=== PATIENT | male | born 1970 ===

== ENCOUNTER 2024-09-24 16:36 | Inpatient (IN) | payer OTHER, SELFPAY ==
[2024-09-24] VITALS (35 sets, daily range): BP systolic 110–175; BP diastolic 71–102; PULSE 2–82; BMI 38.2
[2024-09-24] MEDS: NSS 322 ML IV (07:13)
[2024-09-24] MEDS: LOW STRENGTH ASPIRIN 324 MG PO (07:15)
[2024-09-24 08:46] LABS: ACT-LR - POC 199 Seconds (116-155)
[2024-09-24 09:44] LABS: Hematocrit 38.9 % (39.0-52.0); Hemoglobin 11.7 g/dL (13.0-18.0); Mean Corp Hgb Conc. 30.1 g/dL (33.0-37.0); Mean Corpuscular Hgb 29.3 pg (27.0-31.0); Mean Corpuscular Volume 97.5 fL (80.0-94.0); Red Blood Cell Count 3.99 10^6/uL (4.70-6.10); Red Cell Dist. Width 15.4 % (11.5-14.5); White Blood Cell Count 7.4 10^3/uL (4.8-10.8)
[2024-09-24 10:38] LABS: Mean Platelet Volume 10.6 fL (7.4-10.4); Platelet Count 128 10^3/uL (130-400)
--- NOTE | 2024-09-24 11:02 | ITS.CL.CATH ---
Addendum entered and electronically signed by Kalen Ramos MD 09/24/24 11:23:
Contrast Load: 70ccs Visopaque.
Original Note:
Embedded Firmware Engineer - Catheterization
Cardiac Catheterization
Procedure Report:
LEFT HEART CATHETERIZATION
Date of Procedure: September 24, 2024
Procedures performed:
1: Coronary angiography
2: Right heart catheterization
3: Conscious sedation
Primary Care Physician: Unknown
Primary Ruffler: Self
INDICATION: 54-year-old male with known cardiomyopathy, severe peripheral vascular disease, acutely short of breath and edematous. Left and right heart catheterization done to evaluate hemodynamics.
ACCESS: The patient was prepped and draped in usual sterile fashion. A 6 Turkmen sheath was placed in the right radial] artery using the Seldinger over the wire technique. 5 Turkmen sheath was placed in the right brachial vein.
HEMODYNAMIC FINDINGS (mmHg):
Using a 5 Turkmen Arrow balloontipped catheter, right heart catheterization was performed.
Pulmonary capillary wedge pressure is 44 mmHg.
PA pressure 76/41 with a mean of 54 mmHg
Aortic saturation is 87.2% on 2 L nasal cannula
PA saturation 60.1% on 2 L nasal cannula.
RV pressure 73/21 mmHg
RA pressure is 23
mmHg
Using a JR4 catheter, the aortic valve was crossed into left ventricle. Pressures were recorded and pullback was performed. In order to conserve IV contrast use, left ventriculography was not performed.
LV(s/d,EDP): 152/33 with an LVEDP of 51
Ao(s/d,m): 155/100 with a mean of 124
Coronary Angiography: Of note, the patient's anatomy was very difficult, and access to the vessels was difficult.
Dominance: [Right dominant.]
Left Main: Diffuse atherosclerotic disease present. 20 to 30% distal left main coronary artery stenosis
Left Anterior Descending: [Large vessel. Reaches the apex. 3 diagonals present with D3 being the largest vessel.20 to 30% mid LAD stenosis. Diffuse atherosclerotic disease present throughout the LAD.
Left Circumflex: Large vessel. Diffuse atherosclerotic disease present. 1 large OM branch present. OM1 has 50 to 60% ostial and 40 to 50% mid segment stenosis.
Right Coronary: [Large vessel. Dominant. Normal size PDA. Minor luminal irregularities are present. No discrete stenoses.]
Fluoroscopy Time (min): 9.1 minutes
Radiation Dose (mGy): One 494.35
DAP (Gy.cm2): 80.2356
Closure device: None. A TR band was applied for hemostasis at the right wrist.
Complications: None.
ASSESSMENT:
1: Diffuse, nonobstructive coronary artery disease
2: Severely elevated left sided pressures.
3: Severe pulmonary hypertension
4: Severely elevated pulmonary capillary wedge pressure
CONCLUSIONS and RECOMMENDATIONS:
1: Given the patient's state of acutely decompensated congestive heart failure, would recommend admission for aggressive diuresis.
2: Continue maximal medical therapy for coronary artery disease.
3: Patient may need evaluation for implantable cardioverter defibrillator after 3 months of maximal medical therapy.
I was present with the patient for the duration of the moderate sedation and supervised staff who monitored the patient for the entire procedure. Details of sedation are entered by the nurse administering the sedation and details of the patient's
monitoring status are entered by a sign monitor role staff member into the [facility] laboratory electronic record system. Please see the nursing flow sheets for documentation of the name of the independent trained observer, and intra-service start and
end times.
I administered moderate sedation throughout this 35 minute procedure. An independent trained observer administered medications at my direction, and monitored, along with the monitor role staff member, the patient's level of consciousness and
physiological status throughout.
[2024-09-24 11:03] LABS: Blood Urea Nitrogen 50 mg/dl (9-20); Calcium 6.7 mg/dl (8.4-10.2); Carbon Dioxide 14 mmol/L (22-30); Chloride 116 mmol/L (98-107); Estimated Creatinine Clearance 33 ml/min; Glucose 99 mg/dl (70-99); Potassium 6.4 mmol/L (3.5-5.1); Sodium 142 mmol/L (135-145); eGFR 24.93
--- NOTE | 2024-09-24 11:25 | PTCARENOTE ---
Critical results from BMP- K 6.4, CO2 14 and calcium 6.[address] Garcia
[2024-09-24] MEDS: LOKELMA 10 GRAM PO (11:53)
[2024-09-24] MEDS: DEXTROSE 50% SYRINGE 25 GRAMS IV (12:05)
[2024-09-24] MEDS: NOVOLIN R 0.1 UNITS IV (12:05)
--- NOTE | 2024-09-24 12:53 | HPS.HSE ---
Family Physician
-
Family Physician: LUI PASCAL,
Chief Complaint
-
CHF
History of Present Illness
Mr. Ismael Uriostegui is a 54yo M pmh CHF, AAA, HLD admitted for a CHF exacerbation. Pt got a heart catheterization this morning and was found to be in an acute CHF exacerbation. +dyspnea earlier today, +30lb weight gain, +B/L LE edema. -CP, -HALLMAN,
-fever, - chills, -cough, - palpitations, -N/V/D/C, -abdominal pain.
Medical History
Past Medical History
Past Medical History: Reports CHF and Hypercholesterolemia
Past Surgical History: Reports Orthopedic
Social History
Tobacco: Smoker (40 pack-years)
Alcohol: Former (quit 1 yr ago)
Drug: None
Family History
Family History: Not pertinent
Allergies / Home Medications
Allergies reflects when Allergies were last updated in agreement24 [email or web address].
Home Medications with original date entered in agreement24 [email or web address]
Allergy/Medication List:
Allergies
Allergy/AdvReac Type Severity Reaction Status Date / Time
No Known Allergies Allergy Verified 09/24/24 06:40
Home Medications
atorvastatin 40 mg tablet 40 mg PO DAILY 09/23/24
carvedilol 12.5 mg tablet 12.5 mg PO BID 09/23/24
clopidogrel 75 mg tablet 75 mg PO DAILY 09/23/24
empagliflozin 10 mg tablet 10 mg PO DAILY 09/23/24
furosemide 40 mg tablet 40 mg PO DAILY 09/23/24
sacubitril 24 mg-valsartan 26 mg tablet 1 tab PO BID 09/23/24
Review of Systems
-
History Source: Patient
A 12 point ROS was completed and negative except as noted: Yes
Constitutional: Reports Weight Gain
Respiratory: Reports Trouble Breathing
Musculoskeletal: Reports Edema
Physical Exam
Vital Signs
Vital Signs
Temp Pulse Resp BP Pulse Ox
97.8 F 75 21 142/89 94
09/24/24 07:28 09/24/24 12:45 09/24/24 12:45 09/24/24 12:26 09/24/24 12:45
Physical Exam
General: Well Developed, Well Nourished and Obese
HEENT: NormoCephalic, Anicteric and Atraumatic
Respiratory: Wheezes
Cardiac: S1/S2 and Regular Rhythm
GI: Soft, Non Tender, Non Distended and Normal Bowel Sounds
Musculoskeletal: No Clubbing, No Cyanosis, Edema, Left Lower Extremity and Edema, Right Lower Extremity
Skin: Warm and Dry
Neuro: AO x 3
Psych: Calm
Laboratory Results
-
09/24/24 09:28
09/24/24 09:28
Impression/Plan
-
IMPRESSION:
Acute decompensated CHF
LOURDES vs CKD stage IV
Hyperkalemia
Hypocalcemia
Normocytic anemia
Metabolic acidosis
Infrarenal 8cm AAA
PAD
Tobacco use disorder
Alcohol use disorder
HLD
PLAN:
CHF, Unspecified type
- cont home carvedilol
- diurese w lasix
- hold SGLT2i, entresto
- echo, CXR, probnp
- I's&O's, daily weights
- K>4, Mg>2
LOURDES vs underlying CKD stage IV
- no baseline labs available
- Cr 2.9
- hold SGLT-2i, entresto
- monitor cmp
- nephro following
Hyperkalemia
- insulin w D50
- cont lokelma
- kayexalate per nephro
Hypocalcemia
- check Mg, albumin
- replete
Nonanion gap Metabolic acidosis
- ABG
Normocytic anemia
- monitor cbc
Tobacco use disorder
- nicotine patch
- councilled on smoking cessation
Alcohol use disorder
- reports last drink 1 yr ago
- thiamine, folate
- LFTs
Infrarenal AAA, measuring 8cm
- vascular surgery consulted
HLD
- cont statin, plavix
PAD
- cont statin/plavix
Obesity due to excess calories
- concern for JAD/OHS
- BiPAP nocturnal
- pulm consulted
- abg
Diet: cholesterol lowering
DVT ppx: heparin
Code status: FULL CODE
--- NOTE | 2024-09-24 13:43 | W.PN.UPDATE ---
Update Note
Progress Note Update
I personally performed a history and physical exam of the patient and discussed management with the resident. I reviewed the resident's note and agree with the documented findings and plan of care HPI/CC.
54-year-old male who is presenting as a direct admission after cardiac cath (RHC/LHC) due to multiple medical problems including elevated PCWP (acute decompensated CHF) as well as acute kidney injury and 8 cm aortic aneurysm. Currently denies chest
pain or shortness of breath.
Gen: NAD, AAOx3.
Eyes: EOMI, PERRLA, no scleral icterus.
Neck: supple.
CV: RRR, +S1/S2, no m/r/g.
Resp: CTAB, no rales, wheezes, or rhonchi.
Abd: +BS, soft, NT, ND
Skin: No rashes. 3+ B/L LE edema
Neuro: CN 2-12 intact, non-focal.
Psych: Normal mood and affect.
Lab Results
09/24/24 09/24/24
08:41 09:28
WBC 7.4
RBC 3.99 L
Hgb 11.7 L
Hct 38.9 L
MCV 97.5 H
MCH 29.3
MCHC 30.1 L
RDW 15.4 H
Plt Count 128 L
MPV 10.6 H
Sodium 142
Potassium 6.4 H*
Chloride 116 H
Carbon Dioxide 14 L*
BUN 50 H
Creatinine 2.9 H
Estimated Creat Clear 33
eGFR 24.93
Glucose 99
Calcium 6.7 L*
POC ACT Low Range 199 H
Acute decompensated CHF:
-check proBNP
-check echo (urgently, I personally called echo department). Reportedly EF 20%.
-cont IV lasix (high dose), daily wts, I/Os
-concerned with hyperkalemia (see below), non-AG met acidosis, CKD4 (baseline Cr 2.6), and need for diuresis.
-current HR 47, has been on Coreg 12.5mg PO BID, may need to lower dose
-hold Entresto/Jardiance with CKD4
Severe hyperkalemia:
-s/p D50W and insulin
-cont Lokelma
-with need for diuresis for acute decompensated heart failure it is possible the patient will need urgent HD. Discussed with Dr. Payne over the phone. Patient is going to receive Kayexalate. Will also receive bicarb and high dose lasix.
Tobacco abuse disorder:
-Patient reports he smoked a pack a day for over 40 years
-Nicotine patch
-Counseled on smoking cessation
Alcohol abuse disorder:
-states he quit ~ 1 year ago
-check LFTs
-start thiamine/folate
Infrarenal abdominal aortic aneurysm of 8 cm:
-Consult vascular surgery
HLD:
-cont statin
PAD:
-cont plavix/statin
Hypocalcemia:
-Check albumin to calculate corrected calcium
-suspect this is 'real.' Will give 2g calcium gluconate while awaiting albumin.
Obesity due to excess calories:
-Patient was dozing off during cardiology's interview
-Concern for undiagnosed OHS/JAD
-Check ABG
-Continuous end-tidal CO2 monitoring
-Consult pulmonary, discussed with Dr. Benitez, will do PRN BIPAP 14/6 with 2-4L O2
-Check two-view chest x-ray
FULL/Heparin
Total time spent on today's encounter was 78 minutes which included time spent in counseling the patient/family regarding diagnosis and treatment plan as listed above, goals of care, and symptom management. Case was discussed with nursing staff,
specialists, and care coordinators/case management. All labs and imaging personally reviewed by me. Remainder the time spent in detailed review of previous records, lab data, imaging, and other medical provider documentation.
--- NOTE | 2024-09-24 13:47 | W.CON.NEPH ---
Consultation
-
Date/Time Consultation Requested: 09/24/2024 10:00 AM
Date/Time Consultation Performed: 09/24/2024 12:30 PM
Requesting Provider: Dr. Garcia
Performing Provider: Dr. Payne
Reason for Consultation: Acute kidney injury/hyperkalemia/metabolic acidosis
Medical History
-
Chief Complaint: Acute kidney injury
History of Present Illness:
The patient is a 54-year-old male with a past medical history unknown to us. Apparently he has a history of an underlying cardiomyopathy with a EF of 20% maintained on beta-mark and Entresto and 40 mg daily of Lasix. He has a history of
peripheral vascular disease and is maintained on Plavix. He apparently has a infrarenal AAA of 8 cm diameter. He is maintained on statin therapy in the setting of dyslipidemia. The patient has had increasing shortness of breath and edema. He
underwent both left and right heart cath today and was noted to have diffuse nonobstructive coronary artery disease with associated severe pulmonary hypertension and elevated pulmonary capillary wedge pressure in excess of 40. Nephrology was
consulted after the procedure for his decompensated congestive heart failure creatinine of 2.9 and associated hyperkalemia with potassium of 6.4 and serum bicarbonate level 14. Calcium level is also depressed.
Past Medical History
AAA 8 cm diameter
Peripheral vascular disease
Cardiomyopathy with EF of 20 to 30%
Congestive heart failure
Chronic kidney disease stage IV baseline creatinine 2.65 as of June 2024
Dyslipidemia
Social History
Tobacco: Smoker
Family History
no ckd
Allergies / Home Medications
Allergy/AdvReac Type Severity Reaction Status Date / Time
No Known Allergies Allergy Verified 09/24/24 06:40
�Medication �Instructions �Recorded �Confirmed �Type
atorvastatin 40 mg tablet 40 mg PO DAILY 09/23/24 09/24/24 History
carvedilol 12.5 mg tablet 12.5 mg PO BID 09/23/24 09/24/24 History
clopidogrel 75 mg tablet 75 mg PO DAILY 09/23/24 09/24/24 History
empagliflozin 10 mg tablet 10 mg PO DAILY 09/23/24 09/24/24 History
furosemide 40 mg tablet 40 mg PO DAILY 09/23/24 09/24/24 History
sacubitril 24 mg-valsartan 26 mg 1 tab PO BID 09/23/24 09/24/24 History
tablet
Review of Systems
-
History Source: Patient
All other systems: Negative unless noted
Constitutional: Fatigue
Respiratory: Trouble Breathing
Cardiac: No Symptoms
Abdomen/GI: No Symptoms
: No Symptoms
Musculoskeletal: Edema
Skin: No Symptoms
Neurological: No Symptoms
Endocrine: No Symptoms
Hematologic/Lymphatic: No Symptoms
Physical Exam
Vital Signs
Vital Signs
Temp Pulse Resp BP Pulse Ox
97.8 F 47 16 142/89 96
09/24/24 07:28 09/24/24 13:00 09/24/24 13:00 09/24/24 12:26 09/24/24 13:07
Lab Results
09/24/24 09:28
09/24/24 09:28
WBC 7.4 10^3/uL (4.8-10.8) 09/24/24 09:28
RBC 3.99 10^6/uL (4.70-6.10) L 09/24/24 09:28
Hgb 11.7 g/dL (13.0-18.0) L 09/24/24 09:28
Hct 38.9 % (39.0-52.0) L 09/24/24 09:28
Plt Count 128 10^3/uL (130-400) L 09/24/24 09:28
Sodium 142 mmol/L (135-145) 09/24/24 09:28
Potassium 6.4 mmol/L (3.5-5.1) H* 09/24/24 09:28
Chloride 116 mmol/L (98-107) H 09/24/24 09:
Carbon Dioxide 14 mmol/L (22-30) L* 09/24/24:
BUN 50 mg/dl (9-20) H 09/24/24:
Creatinine 2.9 mg/dL (0.7-1.3) H 09/24/24:
eGFR 24.93 09/24/24:
Glucose 99 mg/dl (70-99) 09/24/24:
Calcium 6.7 mg/dl (8.4-10.2) L* 09/24/24:
Physical Exam
General: AOx3, moderate respiratory distress
HEENT: PERRL, EOMI, Anicteric, Conjunctivae Clear, Ear/Nose Intact, Hearing Normal, Oropharynx Clear/Moist, Dentition Intact, Facial Symmetry, Neck Supple, Neck: Trachea Midline, No JVD and No Thyromegaly, no Bruits
Respiratory: Bilateral scattered rales and wheezes with decreased breath sounds towards the bases
Cardiac: S1/S2 and Regular Rate/Rhythm
Breast: Deferred by me
Abdomen: Soft, obese ,nontender, Nondistended, Normal Bowel Sounds and No Hepatosplenomegaly
Rectal: Deferred by Provider
Genito-urinary: No Costovertebral Tenderness
Extremities: No Clubbing, No Cyanosis and 2+ pitting pretibial edema
Skin: No Rash or open lesions
Neuro: Nonfocal/Grossly Intact, CN II-XII (Intact) and Strength (Musculoskeletal exam 5 out of 5 both upper and lower extremities)
Hematologic/Lymphatic: No Cervical Lymphadenopathy, No Submandibular Lymphadenopathy and No Supraclavicular Lymphadenopathy
Psych: Mood/afflect pleasant, Insight/judgement good and Appropriate
Vascular: plus 1 radial pulses, poorly palpable pedal pulse
Data Reviewed
-
Radiology: Report Reviewed by me (Cardiac cath report reviewed)
Labs: Labs Reviewed by me (BMP CBC)
Old Records: Requested (To obtain from [facility])
Assessment/Plan
-
Impression:
LOURDES
CKD 4 (baseline 2.65 07/11)
Hyperkalemia
Decompensated congestive heart failure
Cardiomyopathy with EF of 20 to 30%
Hypocalcemia
[place] metabolic acidosis
PVD/AAA 8cm
Plan:
LOURDES in setting of decompensated congestive heart failure
-Baseline labs not available
-Patient needs aggressive diuresis with 80 mg IV lasix twice daily to be initiated
-Check postvoid bladder scans to evaluate for obstructive component
-Initiate sodium bicarbonate tablets for metabolic acidosis
-Treatment of hyperkalemia (was provided with insulin and D50) , will provide Kayexalate dosage x 1
-Check urinalysis
-Hold Entresto and Empagliflozin in setting of hyperkalemia and acute renal failure
-Significant concern for contrast nephropathy given IV dye load in excess of 100 cc, cardiomyopathy,and GFR less than 30
-Will closely monitor for dialysis requirement
-Accurate I's and O's and daily weights to be obtained
-check pth re: hypocalcemia
--- NOTE | 2024-09-24 14:21 | CON.CAR ---
Addendum entered and electronically signed by Anupam Hogan MD 09/24/24 16:07:
patient seen and examined
agree with MAUREEN Pulido's note and assessment
agree with MAUREEN Pulido's plan
exam:
he has increased work of breathing
placing him on bipap
appears dusky
jvp 8
cor regular
lungs diminished bilaterally with elevated respirations and mild to moderate respiratory distress
abd soft nt nd
no ext edema
aao x 3
PCP: Dr. Jammie Tinoco
Cardiology: Dr. Ramos
Impression:
Admitted to after elective cath for multiple medical problems 09/24/24
CKD 4
Cre 2.65 06/26/24, Cre 2.76 and eGFR 26 09/14/24yperkalemia
potassium 5.6 09/14/24Nonobstructive CAD by cath 09/24/24
Acute HFrEF
PCWP 44 on RHC 09/24/24NICM EF EF 25 to 30% by echo 06/13/24
Mild MR
Moderate aortic regurgitation
Sinus bradycardia
Suspected JAD
PAD
Occluded right external iliac, multifocal mild to moderate narrowing of bilateral common iliac arteries, occluded left SFA and significant atherosclerotic disease in the left popliteal artery and LLE arteries by CTA 05/2624
Mild to moderate stenosis of bilateral renal arteriesLarge partially thrombosed fusiform aneurysm in the distal descending thoracic aorta and suprarenal abdominal aorta measuring up to 8.5 cm and 15 cm, infrarenal AAA measuring 4.5 x 4.4 cm and
approximately 7 cm in length
Echo 06/13/2024: EF 27.2% by Koehler's method, mild to moderate increased LV cavity with severe eccentric LVH, grade 2 diastolic dysfunction, normal RV size with mildly decreased RV systolic function, small pericardial effusion, mild MR, moderate
aortic regurgitation
Echo 10/04/2024: Report pending
Plan:
-Patient had nonobstructive CAD by cardiac cath
-Repeat echo ordered for this admission and report is pending
-agree with transfer to IMU for BIPAP support given his respiratory and metabolic acidosis
-Outpatient dose of Coreg 12.5 mg twice daily will be reduced to 6.25 mg twice daily due to bradycardia on telemetry monitoring.
-Patient with known CKD stage 4 and baseline creatinine of 2.6-2.7. Patient received approximately 150 mL of IV contrast with cardiac catheterization. Nephrology consulted. Would recommend holding outpatient dose of Entresto for now.
-Patient was taking Jardiance 10 mg daily prior to admission and will hold dose for now with expected worsening of renal function following cardiac cath.
-Patient with acute HFrEF and PCWP was 44 by [facility] 09/24/2024. For now we will attempt to diurese with Lasix 80 mg IV twice daily. Patient was taking Lasix 40 mg daily prior to admission.
-Appreciate nephrology input
-Vascular surgery saw the patient as well and he has diffuse PAD as outlined above. No intervention is planned during this admission and he will follow-up with vascular surgery as an outpatient.
Original Note:
Consultation
Consultation Request
Date/Time Consultation Requested: 09/24/2024
Date/Time Consultation Performed: 09/24/2024
Requesting Provider: Dr. Garcia
Performing Provider:
Reason for Consultation: CM, nonobstructive CAD
Medical History
-
History of Present Illness:
Patient was seen by his primary page designer on 08/30/2024 after missing several appointments and they reviewed his testing at length and decided to pursue LHC at today and patient is now being admitted postprocedure for acute HF and multiple
medical problems with consultation to cardiology. Patient has a history of CM and EF was 25 to 30% by echo 06/13/2024, but it was unclear if this was ischemic or nonischemic. The patient's primary page designer noted calcifications visible on
coronary arteries and the patient has a history of severe PAD and so was recommended that he pursue R/LHC at to help facilitate vascular surgery consult as well. Patient has a history of what is described as CKD 3 and his primary cardiology
notes but a baseline creatinine of 2.65. And then on pre-cath labs from 09/06/2024 the creatinine was up to 2.76 with a GFR of 26 which is most consistent with CKD 4. Patient had cardiac cath today and was found to have nonobstructive CAD. He is
being seen by vascular surgery team postop for his diffuse PAD. Also on RHC the PCWP was 44. Nephrology is seeing the patient now as well for hyperkalemia and of note the potassium is elevated 5.6 on pre-cath labs from 09/06/2024.
PMH:
CKD 4
Cre 2.65 06/26/24, Cre 2.76 and eGFR 26 09/14/24
Hyperkalemia
potassium 5.6 09/14/24
Nonobstructive CAD by cath 09/24/24
Chronic HFrEF
NICM EF EF 25 to 30% by echo 06/13/24
Mild MR
Moderate aortic regurgitation
PAD
Occluded right external iliac, multifocal mild to moderate narrowing of bilateral common iliac arteries, occluded left SFA and significant atherosclerotic disease in the left popliteal artery and LLE arteries by CTA 05/2624
Mild to moderate stenosis of bilateral renal arteries
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
Past Medical History
Past Medical History: Other (in HPI)
Past Surgical History: Appendectomy, Orthopedic (right femur julissa) and Tonsilectomy
Social History
Tobacco: Smoker
Alcohol: None
Drug: None
Personal: Partner
Family History
Family History: Diabetes
Allergies / Home Medications
Allergy/AdvReac Type Severity Reaction Status Date / Time
No Known Allergies Allergy Verified 09/24/24 06:40
�Medication �Instructions �Recorded �Confirmed �Type
atorvastatin 40 mg tablet 40 mg PO DAILY 09/23/24 09/24/24 History
carvedilol 12.5 mg tablet 12.5 mg PO BID 09/23/24 09/24/24 History
clopidogrel 75 mg tablet 75 mg PO DAILY 09/23/24 09/24/24 History
empagliflozin 10 mg tablet 10 mg PO DAILY 09/23/24 09/24/24 History
furosemide 40 mg tablet 40 mg PO DAILY 09/23/24 09/24/24 History
sacubitril 24 mg-valsartan 26 mg 1 tab PO BID 09/23/24 09/24/24 History
tablet
Review of Systems
-
History Source: Patient
All other systems: Negative unless noted
Physical Exam
Vital Signs
Temp Pulse Resp BP Pulse Ox
97.8 F 47 16 142/89 96
09/24/24 07:28 09/24/24 13:00 09/24/24 13:00 09/24/24 12:26 09/24/24 13:07
GEN: NAD. AAOx3
HEENT: EOMI, MMM
LUNGS: 2 L NC. No audible wheeze
CV: SR. Reg, S1/S2, no murmur
ABD: soft, BS+, NT, ND
EXT: No clubbing, cyanosis, lesions or edema B/L
NEURO: Gross non-focal
SKIN: No rash
Lab Results
09/24/24 09:28
Labs 09/14/2024: [facility] labs, hemoglobin 11.6, hematocrit 35.8, WBC 6.9, PLT 141
Labs 09/14/2024: [facility] labs, sodium 142, potassium 5.6, BUN 55, creatinine 2.76, CO2 16, calcium 1.7, blood sugar 120
Impression / Plan
-
PCP: Dr. Jammie Tinoco
Cardiology: Dr. Ramos
Impression:
Admitted to after elective cath for multiple medical problems 09/24/24
CKD 4
Cre 2.65 06/26/24, Cre 2.76 and eGFR 26 09/14/24
Hyperkalemia
potassium 5.6 09/14/24
Nonobstructive CAD by cath 09/24/24
Acute HFrEF
PCWP 44 on RHC 09/24/24
NICM EF EF 25 to 30% by echo 06/13/24
Mild MR
Moderate aortic regurgitation
Sinus bradycardia
Suspected JAD
PAD
Occluded right external iliac, multifocal mild to moderate narrowing of bilateral common iliac arteries, occluded left SFA and significant atherosclerotic disease in the left popliteal artery and LLE arteries by CTA 05/2624
Mild to moderate stenosis of bilateral renal arteries
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
Echo 06/13/2024: EF 27.2% by Koehler's method, mild to moderate increased LV cavity with severe eccentric LVH, grade 2 diastolic dysfunction, normal RV size with mildly decreased RV systolic function, small pericardial effusion, mild MR, moderate
aortic regurgitation
Echo 10/04/2024: Report pending
Plan:
-Patient was seen by his primary page designer on 08/30/2024 after missing several appointments and they reviewed his testing at length and decided to pursue LHC at today and patient is now being admitted postprocedure for acute HF and multiple
medical problems with consultation to cardiology. Patient has a history of CM and EF was 25 to 30% by echo 06/13/2024, but it was unclear if this was ischemic or nonischemic. The patient's primary page designer noted calcifications visible on
coronary arteries and the patient has a history of severe PAD and so was recommended that he pursue R/LHC at to help facilitate vascular surgery consult as well. Patient has a history of what is described as CKD 3 and his primary cardiology
notes but a baseline creatinine of 2.65. And then on pre-cath labs from 09/06/2024 the creatinine was up to 2.76 with a GFR of 26 which is most consistent with CKD 4. Patient had cardiac cath today and was found to have nonobstructive CAD. He is
being seen by vascular surgery team postop for his diffuse PAD. Also on [facility] the PCWP was 44. Nephrology is seeing the patient now as well for hyperkalemia and of note the potassium is elevated 5.6 on pre-cath labs from 09/06/2024.
-ECG from [facility] on 08/30/2024 reviewed by me looks like SR without acute ischemic changes, but there is significant baseline artifact on ECG. Repeat ECG 4 09/24/2024 ordered by me
-Patient had nonobstructive CAD by cardiac cath
-Patient with known CM and EF was 25 to 30% by echo at [facility] on 06/13/2024. Repeat echo ordered for this admission and report is pending
-Will manage is a NICM, but medical therapy will be limited due to comorbid conditions.
-Outpatient dose of Coreg 12.5 mg twice daily will be reduced to 6.25 mg twice daily due to bradycardia on telemetry monitoring. It appears the bradycardia is largely associated with sleeping and suspect patient has undiagnosed JAD. This was
reviewed with the hospitalist team and the plan is for continuous ET CO2 monitoring while he recovers from sedation and cardiac catheterization earlier today
-Patient with known CKD stage 4 and baseline creatinine of 2.6-2.7. Patient received approximately 150 mL of IV contrast with cardiac catheterization. Creatinine expected to rise. Nephrology consulted. Would recommend holding outpatient dose of
Entresto for now.
-Patient was taking Jardiance 10 mg daily prior to admission and will hold dose for now with expected worsening of renal function following cardiac cath.
-Patient with acute HFrEF and PCWP was 44 by [facility] 09/24/2024. CI not mentioned on cath report. For now we will attempt to diurese with Lasix 80 mg IV twice daily. Patient was taking Lasix 40 mg daily prior to admission.
-Nephrology is following along for CKD 4 and hyperkalemia. Patient was given dextrose and insulin and nephrology is now planning on the dose of Kayexalate as well patient says that he does not follow with nephrology as an outpatient and that he has
never been told before that he would need dialysis.
-Vascular surgery saw the patient as well and he has diffuse PAD as outlined above. No intervention is planned during this admission and he will follow-up with vascular surgery as an outpatient.
[2024-09-24] MEDS: NICODERM TRANSDERMAL 14 MG TRANSDERM (14:35)
[2024-09-24] MEDS: FOLVITE 1 MG PO (14:35)
[2024-09-24] MEDS: KAYEXALATE SUSPENSION 30 GRAMS PO (14:36)
--- NOTE | 2024-09-24 14:49 | CON.VAS ---
Addendum entered and electronically signed by Ab De Los Santos III, MD 09/24/24 22:12:
This patient was seen and examined with LIZZY Moore. I agree with the history and physical exam as well as the assessment and plan. I have the following additions:
54-year-old male with multiple advanced medical comorbidities including cardiomyopathy, active smoking and chronic kidney disease.
Admitted after cardiac cath today for heart failure. Pulmonary hypertension
Reports having been told he has an abdominal aortic aneurysm for a few years but that 'it was not a big deal '
Currently has no chest or back pain.
I reviewed his CT angiogram images from [facility]. 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 This terminates at the level of the renal arteries and there is a short segment of normal
diameter aorta. He has a smaller intrarenal abdominal aortic aneurysm component of around 47 to 48 mm by my direct measurement. His right external iliac artery and common femoral artery are occluded. He has a high-grade stenosis of his left
external iliac artery. He has atypical anatomy with separate origins of his hepatic and splenic arteries along with to right renal arteries. There is a large prominent lumbar artery branch arising posteriorly in the visceral aortic segment. He
has bilateral infrainguinal occlusive disease.
Surgical intervention for the thoracoabdominal aneurysm will be a very complex technical problem. Mr. Uriostegui has several active and advanced medical comorbidities that certainly heighten his operative risk for repair. I outlined some endovascular
solutions to address this problem but will plan to continue more detailed discussions in the outpatient setting. I did explain to him that given the size of the aneurysm there is a risk of rupture and if this were to happen it would kill him. He
did express understanding and at least today does have an interest in exploring his surgical options.
Continue medical/cardiology optimization.
I provided him with my contact information and will see him in the office after discharge.
Please call with questions or concerns
Signed:
Ab De Los Santos III, MD
[facility]
[phone] (falx)
Original Note:
Consultation
Consultation Request
Performing Provider: Magali
Reason for Consultation: Thoracoabdominal aortic aneurysm (TAAAA)
Medical History
-
Chief Complaint: SOB
History of Present Illness:
54 yo male admitted after cardiac catheterization today. Pt usually follows at [place]. PMH significant for cardiomyopathy with a EF of 20%, known TAAAA, dyslipidemia, BL LE edema, PVD, CHF, CKD IV, active smoker, obesity. Pt underwent right and
left heart cath today that suggested diffuse nonobstructive coronary artery disease with associated severe pulmonary hypertension and elevated pulmonary capillary wedge pressure in excess of 40. Nephrology consulted for acute kidney injury.
Vascular consult for known TAAAA.
Pt seen at bedside with Dr De Los Santos. Pt states he was aware of his aneurysm but was told it 'wasn't a big deal.' He's not sure if anyone is following his TAAAA or not. CT imaging was discussed at length, Dr De Los Santos darek pictures at bedside. All questions
were answered. I am not sure the pt truly understands the gravity of his medical problems. We spoke about possible endovascular options and that open surgery would not be a viable option for him in his current state. Ideally patient would be
medically optimized before any procedure for his aneurysm. We plan to continue this conversation in our office as outpatient in follow up. Pt agreeable to see us in follow up.
Past Medical History
Past Medical History: Other (ardiomyopathy with a EF of 20%, known TAAAA, dyslipidemia, BL LE edema, PVD, CHF, CKD IV, active smoker, obesity)
Social History
Tobacco: Smoker
Alcohol: Former
Personal: Partner
Living: With Family
Family History
Family History: Reviewed & Not Pertinent
Allergies / Home Medications
Allergy/AdvReac Type Severity Reaction Status Date / Time
No Known Allergies Allergy Verified 09/24/24 06:40
�Medication �Instructions �Recorded �Confirmed �Type
atorvastatin 40 mg tablet 40 mg PO DAILY 09/23/24 09/24/24 History
carvedilol 12.5 mg tablet 12.5 mg PO BID 09/23/24 09/24/24 History
clopidogrel 75 mg tablet 75 mg PO DAILY 09/23/24 09/24/24 History
empagliflozin 10 mg tablet 10 mg PO DAILY 09/23/24 09/24/24 History
furosemide 40 mg tablet 40 mg PO DAILY 09/23/24 09/24/24 History
sacubitril 24 mg-valsartan 26 mg 1 tab PO BID 09/23/24 09/24/24 History
tablet
Review of Systems
-
History Source: Patient
All other systems: Negative unless noted
Constitutional: Reports No Symptoms
EENT: Reports No Symptoms
Respiratory: Reports Other (SOB)
Vascular: Denies Leg Pain / Claudication
Abdomen/GI: Reports No Symptoms
Musculoskeletal: Reports Edema (BL LE)
Skin: Reports No Symptoms
Neurological: Reports No Symptoms
Physical Exam
Vital Signs
Temp Pulse Resp BP Pulse Ox
97.8 F 47 16 142/89 96
09/24/24 07:28 09/24/24 13:00 09/24/24 13:00 09/24/24 12:26 09/24/24 13:07
Lab Results
09/24/24 09:28
Physical Exam
General: No Apparent Distress
HEENT: Normocephalic and Atraumatic
Respiratory: Other (BROWN)
Cardiac: Negative JVD
GI: Soft and Non Tender
Musculoskeletal: No Clubbing, No Cyanosis and Edema (Significant LE edema)
Skin: Warm and Dry
Neuro: Awake, Alert and Oriented
Psych: Calm
Pulses: Bilateral Dorsalis Pedis: Doppler (nonpalpable) and Bilateral Posterior Tibial: Doppler (nonpalpable)
Assessment / Plan
-
54 yo male with 8+ TAAAA on CTA from [place], here with decompensated heart failure, acute kidney injury
Plan:
-Dr De Los Santos spoke at length with the pt, darek pictures of TAAAA. Pt requiring optimization from medical standpoint and further discussion regarding possible endovascular options given not a open surgical candidate, we will do this as outpatient in our
office.
-I will place follow up appt in chart.
Data Reviewed
-
CT Scan: Discussed with Patient
Labs: Labs Reviewed by me
[2024-09-24] MEDS: LOKELMA PO (15:04)
[2024-09-24 15:15] LABS: B.E. -9.1 mmol/L; HCO3 19.1 mmol/L (21-28); O2 Saturation % 95.7 % (94-98); PCO2 50 mmHg (35-48); PO2 70 mmHg (83-108)
[2024-09-24 15:19] LABS: pH 7.19 (7.35-7.45)
[2024-09-24 15:22] LABS: ALT (SGPT) 11 U/L (0-50); AST (SGOT) 14 U/L (17-59); Albumin 3.4 g/dl (3.5-5.0); Alkaline Phosphatase 114 U/L (38-126); Direct Bilirubin 0.1 mg/dl (0.0-0.4); Magnesium 1.4 mg/dl (1.6-2.3); Total Bilirubin 0.4 mg/dl (0.2-1.3); Total Protein 6.1 g/dl (6.3-8.2)
[2024-09-24] MEDS: CALCIUM GLUCONATE 100 IV (15:27)
--- NOTE | 2024-09-24 16:05 | CM ---
Chart reviewed. Patient is independent of ADLS, lives with his S.O in a [address], 5 DORA, 0 DME. Plan is for the patient to return home. CM to follow
[2024-09-24] MEDS: FLUSH (NSS) 2 FLUSH IV (16:22)
[2024-09-24] MEDS: SODIUM BICARBONATE 650 MG PO ×2 (16:22→20:06)
[2024-09-24] MEDS: LASIX 80 MG IV (16:22)
[2024-09-24 16:45] LABS: NT-proBNP 5130 pg/ml
--- NOTE | 2024-09-24 17:06 | PTCARENOTE ---
Pt received post cath at 1320. Right rad and brachial dressings dry and intact with good radial pulse. No bleeding or hematoma. Pt on 2LNC, sat 98%. Pt in SR, rate in the 70's. Denies any pain or sob. Pt oob in the chair post cath, heart rate down
to 30's - 40's briefly. Pt assisted back to bed. Pt asymptomatic and rate returned to 70's. Cristin Mahoney PAC aware. Potassium 6.4, medicated with Kayexalate as ordered.Echo, ABGs and CXR completed.
--- NOTE | 2024-09-24 17:39 | PTCARENOTE ---
Pt to be transferred to ICU. Report called to nurse receiving pt.
--- NOTE | 2024-09-24 18:15 | PTCARENOTE ---
Received pt from IVU as an upgrade to IMU due to Hypercapnia and resp acidosis. A&O X4, Girlfriend at bedside. Pt denies BROWN, SpO2 95% on 2L NC. Lungs diminished with faint crackles haif way up bilat. Bipap applied 12/5, 2L. Pt tolerating well. HTN
noted 150-170s/100s. Doppler Bilat DP. Right radial and brachial site dressings CDI with no evidence of hematoma. 20G placed in R forearm and chemistry sent to lab. Plan of care discussed.
[2024-09-24 18:44] LABS: Blood Urea Nitrogen 52 mg/dl (9-20); Calcium 7.6 mg/dl (8.4-10.2); Carbon Dioxide 17 mmol/L (22-30); Chloride 112 mmol/L (98-107); Estimated Creatinine Clearance 33 ml/min; Glucose 111 mg/dl (70-99); Potassium 5.3 mmol/L (3.5-5.1); Sodium 141 mmol/L (135-145); eGFR 24.93
[2024-09-24] MEDS: HEPARIN 5000 UNITS SC (20:05)
[2024-09-24] MEDS: COREG 6.25 MG PO (20:05)
[2024-09-24] MEDS: VITAMIN B1 100 MG PO (20:07)
[2024-09-25] VITALS (20 sets, daily range): BP systolic 121–152; BP diastolic 75–96; PULSE 2–85; BMI 38.1
--- NOTE | 2024-09-25 01:50 | PTCARENOTE ---
Pt assessed. At beginning of shift pt was lethargic but responsive. Moves all extremities. PERRLA. Endorses (+) sensation x4. (+) pulses x4. Dopplered RLE. Dsgs to cath sites CDI. No ecchymosis or hematoma noted. Pt tolerating BiPAP. REmoved before
start of shift to eat dinner and again to sit on the BSC. During these instances 2L NC applied. Pt did awake disoriented to time earlier in shift and became slightly agitated about not walking into the bathroom. Explained that being on BiPAP and
appearing slightly weak with BROWN, would not be recommended due to potential fall precautions. Abd soft nontender. Pt had loose BM x 1 loose mixed with urine. No s/s of distress assessed. Will continue to monitored.
[2024-09-25 04:42] LABS: Hematocrit 35.9 % (39.0-52.0); Hemoglobin 11.1 g/dL (13.0-18.0); Mean Corp Hgb Conc. 30.9 g/dL (33.0-37.0); Mean Corpuscular Hgb 29.3 pg (27.0-31.0); Mean Corpuscular Volume 94.7 fL (80.0-94.0); Mean Platelet Volume 11.5 fL (7.4-10.4); Platelet Count 116 10^3/uL (130-400); Red Blood Cell Count 3.79 10^6/uL (4.70-6.10); Red Cell Dist. Width 15.6 % (11.5-14.5); White Blood Cell Count 7.3 10^3/uL (4.8-10.8)
--- NOTE | 2024-09-25 06:32 | PTCARENOTE ---
Pt now in 4L NC with BiPAP after desating to upper 80's this AM. Otherwise no change in status.
--- NOTE | 2024-09-25 06:35 | W.PN.UPDATE ---
Update Note
Progress Note Update
I saw and evaluated the patient. I reviewed the resident�s note and agree with findings and plan as documented in the resident�s note.
Denies chest pain, shortness of breath, abdominal pain.
Gen: NAD, awake and alert
Eyes: EOMI, PERRLA, no scleral icterus.
Neck: supple.
CV: Remains RRR, +S1/S2, no m/r/g.
Resp: Decreased breath sounds in the bases, otherwise CTAB, no rales, wheezes, or rhonchi.
Abd: +BS, soft, NT, ND
Skin: No rashes. 3+ B/L LE edema
Neuro: CN 2-12 intact, non-focal.
Psych: Normal mood and affect.
Echo: Normal left ventricular chamber size. Moderately reduced left ventricular
systolic function. Left ventricular ejection fraction is 35-40% by volumetric
assessment. Global hypokinesis with inferior and inferolateral akinesis.
Mild concentric left ventricular hypertrophy. Stage II diastolic dysfunction
suggestive of abnormal relaxation and increased filling pressures.
Mitral valve opens normally. Mild mitral regurgitation.
Indexed LA volume is severely abnormal (> 48 mL/m2).
Trileaflet thickened aortic valve. Aortic valve opens normally. Mild aortic
regurgitation.
Small pericardial effusion. Right and left pleural effusion present.
CXR: Cardiomegaly with pulmonary edema and bilateral pleural effusions.
Acute on chronic HFrEF:
-echo above, EF 35-40%, G2DD, LA dilatation
-cont Lasix 80mg IV Q12H
-daily wts, I/Os
-cont Coreg at lower dose with prior bradycardia
-current HR 47, has been on Coreg 12.5mg PO BID, may need to lower dose
-hold Entresto/Jardiance with CKD4
Severe hyperkalemia:
-s/p D50W and insulin, Lokelma, Kayexalate
-K now 5.3, will ask renal to order further Kayexalate
Non-AG met acidosis and respiratory acidosis:
-cont PO bicarb
-BIPAP HS (suspect underlying OHS/JAD)
-pulm following, discussed with Dr. Benitez, downgrade to tele
Tobacco abuse disorder:
-Patient reports he smoked a pack a day for over 40 years
-Nicotine patch
-Counseled on smoking cessation
Alcohol abuse disorder:
-states he quit ~ 1 year ago
-cont thiamine/folate
Infrarenal abdominal aortic aneurysm of 8 cm:
-seen by vascular surgery, no surgical intervention during this hospitalization, outpt f/u
HLD:
-cont statin
PAD:
-cont plavix/statin
Hypocalcemia:
-4g IV calcium gluconate
Hypomagnesemia:
-4g IV Mg
Obesity due to excess calories
CK4
FULL/Heparin
Total time spent on today's encounter was 52 minutes which included time spent in counseling the patient/family regarding diagnosis and treatment plan as listed above, goals of care, and symptom management. Case was discussed with nursing staff,
specialists, and care coordinators/case management. All labs and imaging personally reviewed by me. Remainder the time spent in detailed review of previous records, lab data, imaging, and other medical provider documentation.
[2024-09-25 07:07] LABS: ALT (SGPT) 10 U/L (0-50); AST (SGOT) 14 U/L (17-59); Albumin 3.1 g/dl (3.5-5.0); Alkaline Phosphatase 97 U/L (38-126); Blood Urea Nitrogen 53 mg/dl (9-20); Calcium 6.9 mg/dl (8.4-10.2); Carbon Dioxide 19 mmol/L (22-30); Chloride 113 mmol/L (98-107); Estimated Creatinine Clearance 33 ml/min; Glucose 91 mg/dl (70-99); HDL Cholesterol 35 mg/dl; LDL Cholesterol, Calculated 63 mg/dl; Magnesium 1.3 mg/dl (1.6-2.3); Potassium 5.3 mmol/L (3.5-5.1); Sodium 141 mmol/L (135-145); Total Bilirubin 0.4 mg/dl (0.2-1.3); Total Cholesterol 114 mg/dl (50-199); Total Protein 5.7 g/dl (6.3-8.2); Triglyceride 84 mg/dl (10-149); Very Low Density Lipoprotein 16 mg/dl (0-30); eGFR 24.93
[2024-09-25] MEDS: MAGNESIUM SULFATE 50 IV ×2 (07:38→10:21)
[2024-09-25] MEDS: SODIUM BICARBONATE 650 MG PO ×3 (07:38→22:14)
[2024-09-25] MEDS: LASIX 80 MG IV ×2 (07:38→15:45)
[2024-09-25] MEDS: FOLVITE 1 MG PO (07:38)
[2024-09-25] MEDS: HEPARIN 5000 UNITS SC ×2 (07:38→19:52)
[2024-09-25] MEDS: COREG 6.25 MG PO ×2 (07:38→19:51)
[2024-09-25] MEDS: PLAVIX 75 MG PO (07:38)
[2024-09-25] MEDS: LIPITOR 40 MG PO (07:38)
[2024-09-25] MEDS: VITAMIN B1 100 MG PO ×2 (07:38→19:51)
[2024-09-25] MEDS: NICODERM TRANSDERMAL 14 MG TRANSDERM (07:39)
--- NOTE | 2024-09-25 08:01 | CON.PUL ---
Consultation
Consultation Request
Date/Time Consultation Requested: 09/25/2024-8 AM
Date/Time Consultation Performed: 09/25/2024-8:30 AM
Requesting Provider: Hospitalist
Performing Provider: Dr. Benitez
Reason for Consultation: Shortness of breath
Medical History
-
Chief Complaint: Shortness of breath
History of Present Illness:
54-year-old smoking obese male with a history of hyperlipidemia, CHF and probable obstructive sleep apnea/obesity hypoventilation syndrome who went to cardiac catheterization and found to have acute CHF exacerbation-pulmonary was consulted for
suspected hypercapnia/obesity hypoventilation syndrome/CHF and COPD 09/25/24. The patient was kept overnight and placed on BiPAP-instructions were reviewed with hospitalist yesterday afternoon-and patient tolerated BiPAP, feeling much improved this
morning after diuresis, and offers no complaints of chest pain, chest tightness, productive cough, pleurisy, abdominal pain, nausea, but admits to snoring, feeling unrefreshed and daytime somnolence. He had significant lower extremity edema just
slightly improved as well.
Past Medical History
Past Medical History: None (Hyperlipidemia. CHF. Orthopedic procedure. Suspected COPD and JAD. Cigarette smoker.)
Social History
Tobacco: Smoker (1 pack/day x 40 years-ongoing)
Alcohol: Former (quit 1 year)
Drug: None
Occupational Exposures: No known asbestos exposure
Environmental Exposures: No known tuberculosis exposure
Family History
Family History: Reviewed & Not Pertinent
Allergies / Home Medications
Allergies
Allergy/AdvReac Type Severity Reaction Status Date / Time
No Known Allergies Allergy Verified 09/24/24 06:40
Home Medications
�Medication �Instructions �Recorded �Confirmed �Last Taken �Type
atorvastatin 40 mg tablet 40 mg PO DAILY 09/23/24 09/24/24 09/23/24 06:00 History
carvedilol 12.5 mg tablet 12.5 mg PO BID 09/23/24 09/24/24 09/23/24 23:00 History
clopidogrel 75 mg tablet 75 mg PO DAILY 09/23/24 09/24/24 09/23/24 06:00 History
empagliflozin 10 mg tablet 10 mg PO DAILY 09/23/24 09/24/24 09/23/24 06:00 History
furosemide 40 mg tablet 40 mg PO DAILY 09/23/24 09/24/24 09/23/24 06:00 History
sacubitril 24 mg-valsartan 26 mg 1 tab PO BID 09/23/24 09/24/24 09/23/24 23:00 History
tablet
Review of Systems
-
Unable to Obtain full review of systems at this time due to: Other (Per HPI)
Vitals / Labs / Diagnostic Testing
Vital Signs
Temp Pulse Resp BP Pulse Ox
99.2 F 71 21 140/86 91
09/25/24 07:55 09/24/24 22:15 09/24/24 22:15 09/24/24 22:15 09/24/24 22:00
Lab Data
09/25/24 04:24
09/25/24 06:23
Laboratory Results
09/24/24
15:02
pH 7.19 L*
pCO2 50 H
pO2 70 L
HCO3 19.1 L
O2 Delivery Level
Diagnostic Testing:
Physical Exam
-
Exam:
Well-nourished and well-developed in no apparent distress
HEENT-atraumatic, normocephalic, thick neck
Neck-supple, no JVD, no bruit
Heart-regular rate and rhythm-no murmurs, rubs or gallops
Chest with diminished breath sounds, prolonged expiratory time, expiratory rhonchi and wheezing as well as few basilar crackles
Back without tenderness
Abdomen-soft, nontender, nondistended, no hepatosplenomegaly
Extremities-no cyanosis, clubbing, 1-2+ lower extremity edema
Integument-intact, no rashes, lesions or ecchymosis
Neurology-alert and oriented, nonfocal motor and sensory exam
Assessment
-
54-year-old smoking obese male with a history of hyperlipidemia, CHF and probable obstructive sleep apnea/obesity hypoventilation syndrome who went to cardiac catheterization and found to have acute CHF exacerbation-pulmonary was consulted for
suspected hypercapnia/obesity hypoventilation syndrome/CHF and COPD 09/25/24.
CHF-EF unknown
Bilateral pleural effusions small right and small to moderate left
Obesity hypoventilation/JAD suspected
Mild hypercapnia-VBG 09/24/2024-50.19
LOURDES
Hyperkalemia
Hypocalcemia
Metabolic acidosis
Anemia-normocytic
AAA-8 cm
Conditions present prior to admission:
Hyperlipidemia.
CHF.
Orthopedic procedure.
Chronic renal failure stage IV
Suspected COPD and JAD.
PAD
Cigarette smoker.
Plan
Acute decompensation likely related to CHF on top of underlying COPD and obstructive sleep apnea
Supplemental oxygen as needed
High flow oxygen if needed
BiPAP 14/6-8 cm with supplemental oxygen at night and during the daytime as needed
Nebulizers as needed
Aspiration precautions
Diuresis as tolerated
Monitor renal function, electrolytes, intake/output, lower extremity edema and weight
Replace electrolytes as needed
Cardiology following-correspondence reviewed
Nephrology evaluation-consultation reviewed
Replace electrolytes
Vascular surgery consultation for 8 cm thoracoabdominal aneurysm
Possible endovascular repair at some point
Follow hemoglobin
Transfuse if needed
Smoking cessation counseling ongoing
Nicotine patch
Ongoing alcohol cessation counseling
Outpatient pulmonary/sleep disorders [id number] PFTs, ongoing smoking cessation counseling, possible inhalers, 6-minute walk test, sleep study, yearly low-dose lung cancer screening CT etc.
Diagnostic data:
Chest x-ray 09/24/2024-cardiomegaly with CHF and bilateral pleural effusions
Echocardiogram 09/24/2024-EF 35-40%, stage II diastolic dysfunction, mild mitral regurgitation
Cardiac catheterization 09/24/[id number]-30, echo 05/2024-EF 25%, nonobstructing coronary artery disease
Data Reviewed
-
EKG: Report reviewed by me
Radiology: Image personally visualized and interpreted and Report reviewed by me
Medical Tests (Nuc Med, Echo etc): Report reviewed by me
Labs: Labs reviewed by me
Old Records: Reviewed
Total Time Spent with Patient (in minutes): 55
--- NOTE | 2024-09-25 08:09 | W.PN.HOSP.TC ---
Today's Communication/Plan
-
.
Assessment / Plan
Assessment / Plan
IMPRESSION:
Acute decompensated CHF
LOURDES vs CKD stage IV
Hyperkalemia
Hypocalcemia
Normocytic anemia
Metabolic acidosis
Infrarenal 8cm AAA
PAD
Tobacco use disorder
Alcohol use disorder
HLD
PLAN:
Decompensated HFrEF
- cont home carvedilol
- diurese w lasix 80mg
- hold SGLT2i, entresto
- 09/24 CXR: Cardiomegaly with pulmonary edema and bilateral pleural effusions
- 09/24 echo: EF 35-40%, global hypokinesis with inferior and inferolateral akinesis.
- I's&O's, daily weights
- keep K>4, Mg>2
LOURDES vs underlying CKD stage IV
- Cr 2.9 peak, stable
- hold SGLT-2i, entresto
- monitor cmp
- nephro following
Hyperkalemia
- improving
- insulin w D50, lokelma given
- kayexalate per nephro
Hypocalcemia
Hypomagnesemia
Hypoalbuminemia
- replete calcium, magnesium
Nonanion gap Metabolic acidosis
- ABG
Normocytic anemia
- monitor cbc
Tobacco use disorder
- nicotine patch
- counciled on smoking cessation
Alcohol use disorder
- reports last drink 1 yr ago
- thiamine, folate
- LFTs
Infrarenal AAA, measuring 8cm
- vascular surgery consulted - pt to be medically optimized and f/u outpatient
HLD
- cont statin, plavix
PAD
- cont statin/plavix
Obesity due to excess calories
- concern for JAD/OHS
- BiPAP nocturnal
- pulm consulted
Diet: cholesterol lowering
DVT ppx: heparin
Code status: FULL CODE
Anticipated Discharge: > 48 hours
Subjective/Interval History
-
Date of Service: September 25, 2024
Mr. Imsael Uriostegui is a 54yo M pmh HFrEF (EF 35-40%), stage IV CKD, AAA, HLD admitted for decompensated HF. Pt was transferred to IMU for use of BiPAP. Pt in ICU as IMU overflow. Pt feels better today than he did yesterday.
Objective Data
-
Labs:
Laboratory Results
09/25/24 09/25/24 09/25/24
04:24 05:31 06:23
WBC 7.3
Hgb 11.1 L
Hct 35.9 L
Plt Count 116 L
Sodium Cancelled Cancelled 141
Potassium Cancelled Cancelled 5.3 H
Chloride Cancelled Cancelled 113 H
Carbon Dioxide Cancelled Cancelled 19 L
BUN Cancelled Cancelled 53 H
Creatinine Cancelled Cancelled 2.9 H
Glucose Cancelled Cancelled 91
Calcium Cancelled Cancelled 6.9 L*
Total Bilirubin Cancelled Cancelled 0.4
AST Cancelled Cancelled 14 L
ALT Cancelled Cancelled 10
Alkaline Phosphatase Cancelled Cancelled 97
Vital Signs:
Vital Signs
Temp Pulse Resp BP Pulse Ox
99.2 F 71 21 140/86 91
09/25/24 07:55 09/24/24 22:15 09/24/24 22:15 09/24/24 22:15 09/24/24 22:00
I&O
09/24/24 09/25/24 09/26/24
06:59 06:59 06:59
Intake Total 985 / 985
Output Total 2300 / 2300
Balance -1315 / -1315
Review of Systems
-
History Source: Patient
Constitutional: Reports No Symptoms
EENT: Reports No Symptoms Reported
Respiratory: Reports No Symptoms
Cardiac: Reports No Symptoms
Abdomen/GI: Reports No Symptoms
Genitourinary: Reports No Symptoms
Musculoskeletal: Reports Edema
Skin: Reports No Symptoms
Neuro: Reports No Symptoms
Physical Exam
-
General: Well Developed, Well Nourished and Obese
HEENT: Normocephalic, Atraumatic and Anicteric
Respiratory: Wheezes
Cardiac: Regular Rhythm and S1/S2
GI: Soft, Nontender, Nondistended and Normal Bowel Sounds
Musculoskeletal: Edema, Right Lower Extrem and Edema, Left Lower Extrem
Skin: Warm and Dry
Neuro: AO x 3
Psych: Calm
--- NOTE | 2024-09-25 08:10 | W.PN.CARDCBS ---
Today's Communication / Plan
-
Creatinine stable at 2.9. Continue to follow. Continue Lasix 80 mg IV twice daily.
Increase Coreg to 12.5 mg p.o. twice daily.
Will hold on all afterload reduction with renal insufficiency for now. May need to consider nitrates and hydralazine over next 24 hours.
Continue sodium bicarb per nephrology and watch for contrast-induced nephropathy.
Continue BiPAP
Alcohol abstinence
Impression / Plan
-
PCP: Dr. Jammie Tinoco
Cardiology: Dr. Ramos
Impression:
Admitted to after elective cath for multiple medical problems 09/24/24
CKD 4
Cre 2.65 06/26/24, Cre 2.76 and eGFR 26 09/14/24
Hyperkalemia
potassium 5.6 09/14/24
Nonobstructive CAD by cath 09/24/24
Acute HFrEF
PCWP 44 on RHC 09/24/24
NICM EF EF 25 to 30% by echo 06/13/24
Mild MR
Moderate aortic regurgitation
Sinus bradycardia
Suspected JAD
PAD
Occluded right external iliac, multifocal mild to moderate narrowing of bilateral common iliac arteries, occluded left SFA and significant atherosclerotic disease in the left popliteal artery and LLE arteries by CTA 05/2624
Mild to moderate stenosis of bilateral renal arteries
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
Echo 06/13/2024: EF 27.2% by Koehler's method, mild to moderate increased LV cavity with severe eccentric LVH, grade 2 diastolic dysfunction, normal RV size with mildly decreased RV systolic function, small pericardial effusion, mild MR, moderate
aortic regurgitation
Echo 10/04/2024: 35-40%, inferior hypokinesis, mild MR, mild AR, small pericardial effusion
RHC: PCWP 44, PA 76/41, RA 23
LHC: 20-30% LMain, LAD, 50-60% OM1
Plan:
-Cath results reviewed. Nonobstructive CAD with markedly elevated filling pressures. Will continue aggressive IV Lasix.
-Fortunately creatinine remains stable at 2.9. Continue to follow closely. Appreciate nephrology input.
-Increase carvedilol to 12.5 mg p.o. twice daily. Hold on VISHAL/ARB/Jardiance with renal insufficiency.
-Would eventually consider nitrates/hydralazine.
-CHF education/alcohol abstinence.
-Vascular surgery saw the patient as well and he has diffuse PAD as outlined above. No intervention is planned during this admission and he will follow-up with vascular surgery as an outpatient.
-Continue aspirin, Plavix, atorvastatin.
Progress Note - Marketing Admin
Subjective
Date of Service: September 25, 2024
On BiPAP. Denies chest pains or shortness of breath.
Objective
Labs:
09/25/24 04:24
09/25/24 06:23
Labs
Hgb 11.1 g/dL (13.0-18.0) L 09/25/24 04:24
Hct 35.9 % (39.0-52.0) L 09/25/24 04:24
Plt Count 116 10^3/uL (130-400) L 09/25/24 04:24
Sodium 141 mmol/L (135-145) 09/25/24 06:23
Potassium 5.3 mmol/L (3.5-5.1) H 09/25/24 06:23
BUN 53 mg/dl (9-20) H 09/25/24 06:23
Creatinine 2.9 mg/dL (0.7-1.3) H 09/25/24 06:23
Glucose 91 mg/dl (70-99) 09/25/24 06:23
Vital Signs and I&O:
Vital Signs
Temp Pulse Resp BP Pulse Ox
99.2 F 71 21 140/86 91
09/25/24 07:55 09/24/24 22:15 09/24/24 22:15 09/24/24 22:15 09/24/24 22:00
Vital Signs
Temp Pulse Resp BP Pulse Ox
99.2 F 71 21 140/86 91
09/25/24 07:55 09/24/24 22:15 09/24/24 22:15 09/24/24 22:15 09/24/24 22:00
Intake & Output
09/23/24 09/24/24 09/25/24 09/26/24
06:59 06:59 06:59 06:59
Intake Total 985 / 985
Output Total 2300 / 2300
Balance -1315 / -1315
Physical Exam
Physical Exam
GEN: No distress, awake, Ox3
HEENT: supple, anicteric, mmm
LUNGS: scatt rhonchi
CV: Reg, S1/S2, 1/6 syst LSB, no gallop
ABD: soft, BS+, NT/ND
EXT: ++ edema
NEURO: Gross non-focal
SKIN: No rash
[2024-09-25 09:03] LABS: Glycohemoglobin (HgbA1c) 5.8 % (4.0-5.6)
[2024-09-25] MEDS: CALCIUM GLUCONATE 290 MG IV (09:43)
--- NOTE | 2024-09-25 11:59 | CM ---
CM following re: discharge planning.
Reviewed pt's chart, met with pt.
Pt is a 54 year old male, admitted with primary dx of decompensated HF. Bi-pap at night. Pt does not have Bi-pap machine at home.
Pt reports he lives with a girlfriend 2SH, 2 steps to enter, has no children. Pt described himself as independent in all areas [employer], drives, works. Pt expressed his desire to return back home at discharge.
PCP: [facility] PASCAL,
Pharmacy: [facility]
D/C plan: home with anticipated no needs.
CM will follow with discharge plan updates as hospitalization progresses
--- NOTE | 2024-09-25 13:42 | W.PN.NEPH.PH ---
Today's Communication / Plan
-
see plan
Assessment/Plan
-
Impression:
LOURDSE
CKD 4 (baseline 2.65 07/11)
Hyperkalemia
Decompensated congestive heart failure
Cardiomyopathy with EF of 20 to 30%
Hypocalcemia
Nongap metabolic acidosis
PVD/AAA 8cm
Plan:
LOURDES in setting of decompensated congestive heart failure
-Baseline labs not available, Creatinine stable at 2.9
improving hyperkalemia expect to see further improvement with diuresis
Check baseline urinalysis, urine PCR, bladder scan 1 49 cc
Nonoliguric, continue Lasix 80 twice a day
Improving metabolic acidosis continue oral bicarbonate
Replace calcium and magnesium- Check PTH and vitamin D
avoid nephrotoxins, continue to hold Entresto and SGLT2I
Significant concern for contrast nephropathy given IV dye load in excess of 100 cc -48 hour window tomorrow
-Accurate I's and O's and daily weights daily
Likely no need of dialysis this admission
Discussed with the patient
-
-
Date of Service: September 25, 2024
CC / HPI / ROS
-
Chief Complaint:
LOURDES
History of Present Illness:
cr no change at 2.9, non oliguric with out conde
Bp stable, wt decreasing
k 5.3, bicarb at 19, sury low 6.9
Review of Systems:
Feels better, less short of breath. No pain
Labs
-
Labs:
WBC 7.3 10^3/uL (4.8-10.8) 09/25/24 04:24
RBC 3.79 10^6/uL (4.70-6.10) L 09/25/24 04:24
Hgb 11.1 g/dL (13.0-18.0) L 09/25/24 04:24
Hct 35.9 % (39.0-52.0) L 09/25/24 04:24
Plt Count 116 10^3/uL (130-400) L 09/25/24 04:24
Sodium 141 mmol/L (135-145) 09/25/24 06:23
Potassium 5.3 mmol/L (3.5-5.1) H 09/25/24 06:23
Chloride 113 mmol/L (98-107) H 09/25/24 06:23
Carbon Dioxide 19 mmol/L (22-30) L 09/25/24 06:23
BUN 53 mg/dl (9-20) H 09/25/24 06:23
Creatinine 2.9 mg/dL (0.7-1.3) H 09/25/24 06:23
eGFR 24.93 09/25/24 06:23
Glucose 91 mg/dl (70-99) 09/25/24 06:23
Calcium 6.9 mg/dl (8.4-10.2) L* 09/25/24 06:23
Oxv-E-Rdmnoqerhfe Pept 5130 pg/ml 09/24/24 09:28
Albumin 3.1 g/dl (3.5-5.0) L 09/25/24 06:23
Physical Exam
-
Vital Signs:
Vital Signs
Temp Pulse Resp BP Pulse Ox
97.9 F 73 16 152/86 93
09/25/24 11:30 09/25/24 12:30 09/25/24 12:30 09/25/24 12:00 09/25/24 12:39
Cardiovascular:: Regular rate and rhythm
Respiratory:: Bilateral: Rales
Lung Excursion:: Normal
Abdomen:: Nontender and Soft
Extremity Edema:: +3: Bilateral:
Conde Catheter: No
--- NOTE | 2024-09-25 14:51 | PTCARENOTE ---
Pt received in bed @ 0700. AAOx3. Drowsy at times. Denying pain or discomfort. Tolerated BiPAP throughout night. Transferred over 2L NC for morning meds, oral care, and eating breakfast. SaO2 to 84% when falling asleep on 2L; pt cooperative with
placing BiPAP back on while asleep. SaO2 to 95%. Pt awoke and 2L NC reappliaed; Thad@ 96%. Sinus rhythm with BBBC on security monitor. +1 pitting LE edema. Pedal pulses present with Doppler. Abdomen round, obese, distended. Using Urinal. Cath sites
dressings C/D/I. Magnesium Sulfate 4gram IV and Calcium Gluconate 4 grams IV administered.
[2024-09-25 17:33] LABS: Urine Albumin 1+ (Neg - Trace); Urine Bilirubin Negative (Negative); Urine Character Clear (Clear); Urine Color Yellow; Urine Glucose Negative (Negative); Urine Ketone Negative (Negative); Urine Leukocyte Negative (Negative); Urine Nitrite Negative (Negative); Urine Occult Blood Negative (Negative); Urine Specific Gravity 1.015 (<1.030); Urine Urobilinogen Negative (Neg - 1+)
[2024-09-25 17:56] LABS: Protein/creatinine Ratio 2.8; Urine Protein 87 mg/dl; Urine Sodium 118 mmol/L (30-90)
[2024-09-25 18:47] LABS: Urine Hyaline Cast 0-2 /LPF (0-2); Urine Red Blood Cell 0-2 /HPF (0-2); Urine White Cell 0-2 /HPF (0-5)
--- NOTE | 2024-09-25 23:02 | PTCARENOTE ---
Pt fell asleep without bipap, desat to 81% and HR 40s. Respiratory now at bedside to place pt on bipap.
[2024-09-26] VITALS (9 sets, daily range): BP systolic 123–162; BP diastolic 78–97; PULSE 2–68; BMI 37.9
--- NOTE | 2024-09-26 07:16 | W.PN.PUL3 ---
Today's Communication / Plan
-
Remains on 2L NC, eventual home O2 assessment
CHF management ongoing
Continued on IV diuresis per renal/cards
We discussed OP pulmonary/sleep eval, placed in chart for FU
No further recs from our standpoint, will sign off at this time. Please call with questions
Assessment
-
54-year-old smoking obese male with a history of hyperlipidemia, CHF and probable obstructive sleep apnea/obesity hypoventilation syndrome who went to cardiac catheterization and found to have acute CHF exacerbation-pulmonary was consulted for
suspected hypercapnia/obesity hypoventilation syndrome/CHF and COPD 09/25/24.
CHF-EF unknown
Bilateral pleural effusions small right and small to moderate left
Obesity hypoventilation/JAD suspected
Mild hypercapnia-VBG 09/24/2024-7.19
LOURDES
Hyperkalemia
Hypocalcemia
Metabolic acidosis
Anemia-normocytic
AAA-8 cm
Conditions present prior to admission:
Hyperlipidemia.
CHF.
Orthopedic procedure.
Chronic renal failure stage IV
Suspected COPD and JAD.
PAD
Cigarette smoker.
Plan
Acute decompensation likely related to CHF on top of underlying COPD and obstructive sleep apnea
Supplemental oxygen as needed, currently 93% on 2L
Eventual home O2 assessment
BiPAP 14/6-8 cm with supplemental oxygen at night and during the daytime as needed
VBG pending
Recommend outpatient sleep study
Nebulizers as needed
Aspiration precautions
Diuresis as tolerated
Monitor renal function, electrolytes, intake/output, lower extremity edema and weight
Replace electrolytes as needed
Cardiology following-correspondence reviewed
Nephrology evaluation-consultation reviewed
Replace electrolytes
Vascular surgery consultation for 8 cm thoracoabdominal aneurysm
Possible endovascular repair at some point
Follow hemoglobin
Transfuse if needed
Smoking cessation counseling ongoing
Nicotine patch
Ongoing alcohol cessation counseling
Outpatient pulmonary/sleep disorders [id number] PFTs, ongoing smoking cessation counseling, possible inhalers, 6-minute walk test, sleep study, yearly low-dose lung cancer screening CT etc.
Diagnostic data:
Chest x-ray 09/24/2024-cardiomegaly with CHF and bilateral pleural effusions
Echocardiogram 09/24/2024-EF 35-40%, stage II diastolic dysfunction, mild mitral regurgitation
Cardiac catheterization 09/24/[id number]-51, echo 05/2024-EF 25%, nonobstructing coronary artery disease
Subjective Data
-
Date of Service:
Date of Service: September 26, 2024
Chief Complaint: Pulmonary Follow Up
Subjective:
No new events, remains on 2L NC
Sitting in chair, comfortable
Objective Data
Data Reviewed
Vital Signs / I&O / Oxygen:
Vital Signs
Temp Pulse Resp BP Pulse Ox
97.6 F 83 22 151/95 95
09/25/24 15:00 09/25/24 19:51 09/25/24 15:30 09/25/24 19:51 09/25/24 20:33
Intake and Output
09/25/24 09/26/24 09/27/24
06:59 06:59 06:59
Intake Total 985 / 985 870 / 870
Output Total 2300 / 2300 1200 / 1200
Balance -1315 / -1315 -330 / -330
SaO2 95
Nasal Cannula flow liters per 2
minute
Labs/Micro/Reports
Lab Data
09/26/24 06:00
--- NOTE | 2024-09-26 07:54 | W.PN.HOSP.TC ---
Today's Communication/Plan
-
.
Assessment / Plan
Assessment / Plan
IMPRESSION:
Acute decompensated CHF
LOURDES vs CKD stage IV
Hyperkalemia
Hypocalcemia
Normocytic anemia
Metabolic acidosis
Infrarenal 8cm AAA
PAD
Tobacco use disorder
Alcohol use disorder
HLD
PLAN:
Decompensated HFrEF
- cont home carvedilol
- diurese w lasix 80mg
- hold SGLT2i, entresto
- 09/24 CXR: Cardiomegaly with pulmonary edema and bilateral pleural effusions
- 09/24 echo: EF 35-40%, global hypokinesis with inferior and inferolateral akinesis.
- I's&O's, daily weights
- keep K>4, Mg>2
LOURDES vs underlying CKD stage IV
- Cr 3.1 peak, stable
- hold SGLT-2i, entresto
- monitor cmp
- nephro following
Hyperkalemia
- resolved
- insulin w D50, lokelma given
- kayexalate per nephro
Hypomagnesemia
- resolved
Hypocalcemia
Hypoalbuminemia
- replete calcium
- pth pending
Nonanion gap Metabolic acidosis
- ABG
Normocytic anemia
- monitor cbc
Tobacco use disorder
- nicotine patch
- counciled on smoking cessation
Alcohol use disorder
- reports last drink 1 yr ago
- thiamine, folate
- LFTs
Infrarenal AAA, measuring 8cm
- vascular surgery consulted - pt to be medically optimized and f/u outpatient
HLD
- cont statin, plavix
PAD
- cont statin/plavix
Obesity due to excess calories
- concern for JAD/OHS
- BiPAP nocturnal
- pulm consulted
Diet: cholesterol lowering
DVT ppx: heparin
Code status: FULL CODE
Anticipated Discharge: 24 - 48 hours
Subjective/Interval History
-
Date of Service: September 26, 2024
Mr. Ismael Uriostegui is a 54yo M pmh HFrEF (EF 35-40%), stage IV CKD, AAA, HLD admitted for decompensated HF. Pt fell asleep without his BiPAP and desaturated to 81%.
Objective Data
-
Labs:
Laboratory Results
09/26/24 09/26/24 09/26/24
06:00 06:00 06:00
WBC Pending
Hgb Pending
Hct Pending
Plt Count Pending
Sodium Cancelled Pending
Potassium Cancelled Pending
Chloride Cancelled
Carbon Dioxide
BUN
Creatinine
Glucose
Calcium
Total Bilirubin
AST
ALT
Alkaline Phosphatase
09/26/24 09/26/24 09/26/24
06:00 06:00 06:00
WBC
Hgb
Hct
Plt Count
Sodium
Potassium
Chloride Pending
Carbon Dioxide Cancelled Pending
BUN Cancelled Pending
Creatinine Cancelled
Glucose
Calcium
Total Bilirubin
AST
ALT
Alkaline Phosphatase
09/26/24 09/26/24 09/26/24
06:00 06:00 06:00
WBC
Hgb
Hct
Plt Count
Sodium
Potassium
Chloride
Carbon Dioxide
BUN
Creatinine Pending
Glucose Cancelled Pending
Calcium Cancelled Pending
Total Bilirubin Cancelled
AST
ALT
Alkaline Phosphatase
09/26/24 09/26/2409/26/25
06:00 06:00 06:00
WBC
Hgb
Hct
Plt Count
Sodium
Potassium
Chloride
Carbon Dioxide
BUN
Creatinine
Glucose
Calcium
Total Bilirubin Pending
AST Cancelled Pending
ALT Cancelled Pending
Alkaline Phosphatase Cancelled
09/26/24
06:00
WBC
Hgb
Hct
Plt Count
Sodium
Potassium
Chloride
Carbon Dioxide
BUN
Creatinine
Glucose
Calcium
Total Bilirubin
AST
ALT
Alkaline Phosphatase Pending
Vital Signs:
Vital Signs
Temp Pulse Resp BP Pulse Ox
97.9 F 83 22 151/95 95
09/26/24 04:00 09/25/24 19:51 09/25/24 15:30 09/25/24 19:51 09/25/24 20:33
I&O
09/25/24 09/26/24 09/27/24
06:59 06:59 06:59
Intake Total 985 / 985 870 / 870
Output Total 2300 / 2300 1200 / 1200 650 / 650
Balance -1315 / -1315 -330 / -330 -650 / -650
Review of Systems
-
History Source: Patient
Constitutional: Reports No Symptoms
EENT: Reports No Symptoms Reported
Respiratory: Reports No Symptoms
Cardiac: Reports No Symptoms
Abdomen/GI: Reports No Symptoms
Genitourinary: Reports No Symptoms
Musculoskeletal: Reports Edema
Skin: Reports No Symptoms
Neuro: Reports No Symptoms
Physical Exam
-
General: Well Developed, Well Nourished, Comfortable and Obese
HEENT: Normocephalic, Atraumatic and Anicteric
Respiratory: Wheezes
Cardiac: Regular Rhythm and S1/S2
GI: Soft, Nontender, Nondistended and Normal Bowel Sounds
Musculoskeletal: Edema, Right Lower Extrem and Edema, Left Lower Extrem
Skin: Warm and Dry
Neuro: AO x 3
Psych: Calm
--- NOTE | 2024-09-26 08:00 | PTCARENOTE ---
Received pt @ change of shift. Self removed BiPAP @ 0715, SPO2 87% on RA. 2LNC applied and Spo2 recovered to 94%, no s/s of resp distress. Instructed on how to report care concerns and call quinones in reach.
[2024-09-26] MEDS: HEPARIN 5000 UNITS SC ×2 (08:09→21:00)
[2024-09-26] MEDS: LASIX 80 MG IV ×2 (08:09→16:32)
[2024-09-26] MEDS: COREG 6.25 MG PO ×2 (08:10→20:49)
[2024-09-26] MEDS: SODIUM BICARBONATE 650 MG PO ×3 (08:10→21:00)
[2024-09-26] MEDS: PLAVIX 75 MG PO (08:10)
[2024-09-26] MEDS: FOLVITE 1 MG PO (08:10)
[2024-09-26] MEDS: LIPITOR 40 MG PO (08:10)
[2024-09-26] MEDS: VITAMIN B1 100 MG PO ×2 (08:10→20:50)
[2024-09-26] MEDS: NICODERM TRANSDERMAL 14 MG TRANSDERM (08:11)
[2024-09-26 08:24] LABS: Hematocrit 37.4 % (39.0-52.0); Hemoglobin 11.7 g/dL (13.0-18.0); Mean Corp Hgb Conc. 31.3 g/dL (33.0-37.0); Mean Corpuscular Hgb 28.8 pg (27.0-31.0); Mean Corpuscular Volume 92.1 fL (80.0-94.0); Mean Platelet Volume 10.6 fL (7.4-10.4); Platelet Count 121 10^3/uL (130-400); Red Blood Cell Count 4.06 10^6/uL (4.70-6.10); Red Cell Dist. Width 15.1 % (11.5-14.5); White Blood Cell Count 6.1 10^3/uL (4.8-10.8)
[2024-09-26 08:35] LABS: ALT (SGPT) 11 U/L (0-50); AST (SGOT) 14 U/L (17-59); Albumin 3.5 g/dl (3.5-5.0); Alkaline Phosphatase 115 U/L (38-126); Blood Urea Nitrogen 57 mg/dl (9-20); Calcium 7.8 mg/dl (8.4-10.2); Carbon Dioxide 18 mmol/L (22-30); Chloride 110 mmol/L (98-107); Estimated Creatinine Clearance 31 ml/min; Glucose 93 mg/dl (70-99); Magnesium 2.2 mg/dl (1.6-2.3); Potassium 4.8 mmol/L (3.5-5.1); Sodium 140 mmol/L (135-145); Total Bilirubin 0.4 mg/dl (0.2-1.3); Total Protein 6.3 g/dl (6.3-8.2); eGFR 23.01
[2024-09-26 08:51] LABS: Vitamin D, 25-OH*** < 12.8 ng/mL (30-80)
--- NOTE | 2024-09-26 10:50 | W.PN.CARDCBS ---
Today's Communication / Plan
-
See above
Impression / Plan
-
PCP: Dr. Jammie Tinoco
Cardiology: Dr. Ramos
Impression:
Admitted to after elective cath for multiple medical problems 09/24/24
CKD 4
Cre 2.65 06/26/24, Cre 2.76 and eGFR 26 09/14/24
Hyperkalemia
potassium 5.6 09/14/24
Nonobstructive CAD by cath 09/24/24
Acute HFrEF
PCWP 44 on RHC 09/24/24
NICM EF EF 25 to 30% by echo 06/13/24
Mild MR
Moderate aortic regurgitation
Sinus bradycardia
Suspected JAD
PAD
Occluded right external iliac, multifocal mild to moderate narrowing of bilateral common iliac arteries, occluded left SFA and significant atherosclerotic disease in the left popliteal artery and LLE arteries by CTA 05/2624
Mild to moderate stenosis of bilateral renal arteries
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
Echo 06/13/2024: EF 27.2% by Koehler's method, mild to moderate increased LV cavity with severe eccentric LVH, grade 2 diastolic dysfunction, normal RV size with mildly decreased RV systolic function, small pericardial effusion, mild MR, moderate
aortic regurgitation
Echo 10/04/2024: 35-40%, inferior hypokinesis, mild MR, mild AR, small pericardial effusion
RHC: PCWP 44, PA 76/41, RA 23
LHC: 20-30% LMain, LAD, 50-60% OM1
Plan:
With regards to his nonischemic cardiomyopathy, he is improved but still volume overloaded. Continue IV diuretics per nephrology. Creatinine is 3.1 today.
For LV dysfunction will add nitrates and hydralazine. Defer to nephrology whether patient is a candidate for SGLT2 antagonist.
Consider increase in carvedilol. Hold off for now.
Vascular surgery to further evaluate thoracoabdominal and abdominal aortic aneurysm as outpatient.
We will continue to follow.
Progress Note - Geology Faculty Member
Subjective
Date of Service: September 26, 2024:
Current medications: Atorvastatin 40 mg a day, Plavix 75 mg a day, subcu heparin, furosemide 80 mg IV twice daily, nicotine patch, thiamine, folate, carvedilol 6.25 twice daily, bicarbonate
144/97, pulse 82, respirate 16, afebrile, intake and output incomplete, weight is 106.5 kg, on admission was 107.2 kg, no distress sitting in chair, on his phone, head neck exam unremarkable, lungs relatively clear, distant heart tones but soft
systolic murmur, abdomen benign, extremities still 2+ edema
Renal ultrasound unremarkable
Creatinine is 3.1, BUN is 57, platelets are 121, potassium is 4.8
Objective
Labs:
09/26/24 08:06
09/26/24 08:06
Labs
Hgb 11.7 g/dL (13.0-18.0) L 09/26/24 08:06
Hct 37.4 % (39.0-52.0) L 09/26/24 08:06
Plt Count 121 10^3/uL (130-400) L 09/26/24 08:06
Sodium 140 mmol/L (135-145) 09/26/24 08:06
Potassium 4.8 mmol/L (3.5-5.1) 09/26/24 08:06
BUN 57 mg/dl (9-20) H 09/26/24 08:06
Creatinine 3.1 mg/dL (0.7-1.3) H 09/26/24 08:06
Glucose 93 mg/dl (70-99) 09/26/24 08:06
Vital Signs and I&O:
Vital Signs
Temp Pulse Resp BP Pulse Ox
36.7 C 82 16 144/97 93
09/26/24 08:08 09/26/24 10:00 09/26/24 10:00 09/26/24 08:10 09/26/24 09:42
Vital Signs
Temp Pulse Resp BP Pulse Ox
36.7 C 82 16 144/97 93
09/26/24 08:08 09/26/24 10:00 09/26/24 10:00 09/26/24 08:10 09/26/24 09:42
Intake & Output
09/24/24 09/25/24 09/26/24 09/27/24
07:59 07:59 07:59 07:59
Intake Total 325 / 325 660 / 660 870 / 870
Output Total 2300 / 2300 1850 / 1850 1000 / 1000
Balance 325 / 325 -1640 / -1640 -980 / -980 -1000 / -1000
Physical Exam
Physical Exam
See above
--- NOTE | 2024-09-26 11:46 | W.PN.NEPH.PH ---
Today's Communication / Plan
-
cont lasix, consider metolazone
follow labs
Assessment/Plan
-
Impression:
LOURDES
CKD 4 (baseline 2.65 07/11)
Hyperkalemia
Decompensated congestive heart failure
Cardiomyopathy with EF of 20 to 30%
Hypocalcemia
Nongap metabolic acidosis
PVD/AAA 8cm
Plan:
LOURDES in setting of decompensated congestive heart failure
-Baseline labs not available, Creatinine up at 3.1, post contrast on 09/24
improved hyperkalemia
bland urinalysis, urine PCR 2.8gm/gm of su-ixhezal-dlepv paraprotein w/u
remains Nonoliguric, continue Lasix 80 twice a day
wt no sig change, likely need metolazone too
stable metabolic acidosis continue oral bicarbonate
improving calcium and magnesium- pending PTH and vitamin D def noted-add D2 weekly
avoid nephrotoxins, continue to hold Entresto and SGLT2I
possible JAD on BIPAP at night
Accurate I's and O's and daily weights daily
reviewed with pt about high risk of HD need if renal function worsens
timing of Thoracoabdominal AAA repair per vascular after d/c
Discussed with the patient
-
-
Date of Service: September 26, 2024
CC / HPI / ROS
-
Chief Complaint:
LOURDES
History of Present Illness:
cr up at 3.1 non oliguric with out conde
Bp stable, wt decreasing slowly
k 4.8 better, bicarb at 18, sury low 7.8
Review of Systems:
Feels better, less short of breath. No pain
hypoxic during sleep and used BIPAP
Labs
-
Labs:
WBC 6.1 10^3/uL (4.8-10.8) 09/26/24 08:06
RBC 4.06 10^6/uL (4.70-6.10) L 09/26/24 08:06
Hgb 11.7 g/dL (13.0-18.0) L 09/26/24 08:06
Hct 37.4 % (39.0-52.0) L 09/26/24 08:06
Plt Count 121 10^3/uL (130-400) L 09/26/24 08:06
Sodium 140 mmol/L (135-145) 09/26/24 08:06
Potassium 4.8 mmol/L (3.5-5.1) 09/26/24 08:06
Chloride 110 mmol/L (98-107) H 09/26/24 08:06
Carbon Dioxide 18 mmol/L (22-30) L 09/26/24 08:06
BUN 57 mg/dl (9-20) H 09/26/24 08:06
Creatinine 3.1 mg/dL (0.7-1.3) H 09/26/24 08:06
eGFR 23.01 09/26/24 08:06
Glucose 93 mg/dl (70-99) 09/26/24 08:06
Calcium 7.8 mg/dl (8.4-10.2) L 09/26/24 08:06
Hsa-J-Lqacpadojxk Pept 5130 pg/ml 09/24/24 09:28
Albumin 3.5 g/dl (3.5-5.0) 09/26/24 08:06
Physical Exam
-
Vital Signs:
Vital Signs
Temp Pulse Resp BP Pulse Ox
98.2 F 82 16 144/97 93
09/26/24 11:44 09/26/24 10:00 09/26/24 10:00 09/26/24 08:10 09/26/24 09:42
Cardiovascular:: Regular rate and rhythm
Respiratory:: Bilateral: Coarse
Lung Excursion:: Normal
Abdomen:: Nontender and Soft
Extremity Edema:: +2: Bilateral:
Conde Catheter: No
--- NOTE | 2024-09-26 12:36 | W.PN.UPDATE ---
Update Note
Progress Note Update
I saw and evaluated the patient. I reviewed the resident�s note and agree with findings and plan as documented in the resident�s note.
Denies chest pain, shortness of breath, abdominal pain.
Gen: NAD, awake and alert
Eyes: EOMI, PERRLA, no scleral icterus.
Neck: supple.
CV: Remains RRR, +S1/S2, no m/r/g.
Resp: Decreased breath sounds in the bases, otherwise CTAB, no rales, wheezes, or rhonchi.
Abd: +BS, soft, NT, ND
Skin: No rashes. 3+ B/L LE edema
Neuro: CN 2-12 intact, non-focal.
Psych: Normal mood and affect.
Echo: Normal left ventricular chamber size. Moderately reduced left ventricular
systolic function. Left ventricular ejection fraction is 35-40% by volumetric
assessment. Global hypokinesis with inferior and inferolateral akinesis.
Mild concentric left ventricular hypertrophy. Stage II diastolic dysfunction
suggestive of abnormal relaxation and increased filling pressures.
Mitral valve opens normally. Mild mitral regurgitation.
Indexed LA volume is severely abnormal (> 48 mL/m2).
Trileaflet thickened aortic valve. Aortic valve opens normally. Mild aortic
regurgitation.
Small pericardial effusion. Right and left pleural effusion present.
CXR: Cardiomegaly with pulmonary edema and bilateral pleural effusions.
Acute on chronic HFrEF:
-echo above, EF 35-40%, G2DD, LA dilatation
-cont Lasix 80mg IV Q12H
-daily wts, I/Os
-cont Coreg at lower dose with bradycardia (was worse prior to lowering Coreg dose)
-hold Entresto/Jardiance with CKD4
Non-AG met acidosis and respiratory acidosis:
-cont PO bicarb
-BIPAP HS (suspect underlying OHS/JAD), will need BIPAP on d/c
-check VBG
Other problems:
Severe hyperkalemia: s/p D50W and insulin, Lokelma, Kayexalate, resolved
Tobacco abuse disorder: Patient reports he smoked a pack a day for over 40 years. Nicotine patch. Counseled on smoking cessation.
Alcohol abuse disorder: states he quit ~ 1 year ago, cont thiamine/folate
Infrarenal abdominal aortic aneurysm of 8 cm: seen by vascular surgery, no surgical intervention during this hospitalization, outpt f/u
HLD: cont statin
PAD: cont plavix/statin
Hypocalcemia: s/p IV calcium gluconate. Pt vit D deficient, start ergocalciferol 50,000IU Qweek x 6 doses
Hypomagnesemia, resolved
Obesity due to excess calories
CK4, trend Cr with diuresis
FULL/Heparin
Total time spent on today's encounter was 50 minutes which included time spent in counseling the patient/family regarding diagnosis and treatment plan as listed above, goals of care, and symptom management. Case was discussed with nursing staff,
specialists, and care coordinators/case management. All labs and imaging personally reviewed by me. Remainder the time spent in detailed review of previous records, lab data, imaging, and other medical provider documentation.
[2024-09-26] MEDS: NITRO-DUR 0.2 MG TRANSDERM (13:12)
[2024-09-26] MEDS: DRISDOL (VITAMIN D2) 50000 UNITS PO (13:12)
--- NOTE | 2024-09-26 13:30 | PTCARENOTE ---
24 hour urine initiated @ this time.
[2024-09-26 15:19] LABS: Venous Blood Gas B.E. -5.7 mmol/L (-4 to +4); Venous Blood Gas HCO3 21.5 mmol/L (22-27); Venous Blood Gas O2 Sat % 99.8 %; Venous Blood Gas pCO2 48 mmHg (35-48); Venous Blood Gas pH 7.26 (7.32-7.43); Venous Blood Gas pO2 177 mmHg (30-50)
[2024-09-26 16:08] LABS: B.E. -3.7 mmol/L; HCO3 22.1 mmol/L (21-28); O2 Saturation % 99.5 % (94-98); PCO2 42 mmHg (35-48); PO2 96 mmHg (83-108); pH 7.33 (7.35-7.45)
[2024-09-26] MEDS: APRESOLINE 25 MG PO ×2 (16:32→21:00)
--- NOTE | 2024-09-26 17:10 | PTCARENOTE ---
Report given to 4E RN and pt. transported via wheelchair on security monitor w belongings to [phone]. No further needs from this RN.
--- NOTE | 2024-09-26 17:54 | PTCARENOTE ---
Received pt from ICU via , accompanied by ICU staff. Pt AAO x3, GUERRERO well, able to transfer to bed without assistance. VSS. Placed on telemetry:NSR. Maintained on nc 2 lpm- pulse ox 96%; sight BROWN noted; pt denies SOB. Abd obese, firm; merry
chol lowering diet. Voided large amt clear yellow urine in urinal- 24 hr urine being collected. Foam dsg applied to blistered area RT brachial site (cardiac cath site); circ/neuro check to RUE WNL. Oriented to 4East, currently resting
comfortably. Will continue to monitor.
[2024-09-27] VITALS (7 sets, daily range): BP systolic 116–136; BP diastolic 62–91; PULSE 2–70; BMI 37.1
--- NOTE | 2024-09-27 08:28 | W.PN.HOSP.TC ---
Today's Communication/Plan
-
.
Assessment / Plan
Assessment / Plan
IMPRESSION:
Acute decompensated CHF
LOURDES vs CKD stage IV
Hyperkalemia
Hypocalcemia
Normocytic anemia
Metabolic acidosis
Infrarenal 8cm AAA
PAD
Tobacco use disorder
Alcohol use disorder
HLD
PLAN:
Decompensated HFrEF
- cont home carvedilol
- diurese w lasix 80mg bid
- hold SGLT2i, entresto
- 09/24 CXR: Cardiomegaly with pulmonary edema and bilateral pleural effusions
- 09/24 echo: EF 35-40%, global hypokinesis with inferior and inferolateral akinesis.
- I's&O's, daily weights
- keep K>4, Mg>2
- cardiology following
LOURDES vs underlying CKD stage IV
- Cr 3.1 peak, stable
- hold SGLT-2i, entresto
- monitor cmp
- nephro following
Hyperkalemia
- resolved
- insulin w D50, lokelma given
- kayexalate per nephro
Hypomagnesemia
- resolved
Hypocalcemia
Hypoalbuminemia
- replete calcium - ergocalciferol 50,000IU Qweek x 6 doses
- pth pending
Nonanion gap Metabolic acidosis
- ABG
Normocytic anemia
- monitor cbc
Tobacco use disorder
- nicotine patch
- counciled on smoking cessation
Alcohol use disorder
- reports last drink 1 yr ago
- thiamine, folate
- LFTs
Infrarenal AAA, measuring 8cm
- vascular surgery consulted - pt to be medically optimized and f/u outpatient
HLD
- cont statin, plavix
PAD
- cont statin/plavix
Obesity due to excess calories
- concern for JAD/OHS
- BiPAP nocturnal
- pulm consulted
Diet: cholesterol lowering
DVT ppx: heparin
Code status: FULL CODE
Anticipated Discharge: 24 - 48 hours
Subjective/Interval History
-
Date of Service: September 27, 2024
Mr. Ismael Uriostegui is a 54yo M pmh HFrEF (EF 35-40%), stage IV CKD, AAA, HLD admitted for decompensated HF. No acute overnight events.
Objective Data
-
Labs:
Laboratory Results
09/27/24
07:38
WBC Pending
Hgb Pending
Hct Pending
Plt Count Pending
Sodium Pending
Potassium Pending
Chloride Pending
Carbon Dioxide Pending
BUN Pending
Creatinine Pending
Glucose Pending
Calcium Pending
Total Bilirubin Pending
AST Pending
ALT Pending
Alkaline Phosphatase Pending
Vital Signs:
Vital Signs
Temp Pulse Resp BP Pulse Ox
98.1 F 74 22 125/80 95
09/27/24 07:26 09/27/24 07:26 09/27/24 07:26 09/27/24 07:26 09/27/24 07:26
I&O
09/26/24 09/27/24 09/28/24
06:59 06:59 06:59
Intake Total 870 / 870 840 / 840
Output Total 1200 / 1200 4100 / 4100
Balance -330 / -330 -3260 / -3260
Review of Systems
-
History Source: Patient
Constitutional: Reports No Symptoms
Respiratory: Reports No Symptoms
Cardiac: Reports No Symptoms
Abdomen/GI: Reports No Symptoms
Genitourinary: Reports No Symptoms
Musculoskeletal: Reports No Symptoms
Skin: Reports No Symptoms
Neuro: Reports No Symptoms
Physical Exam
-
General: Well Developed, Well Nourished and Obese
HEENT: Normocephalic, Atraumatic, Moist Mucous Membranes and Anicteric
Respiratory: Wheezes
Cardiac: Regular Rhythm and S1/S2
GI: Soft, Nontender, Nondistended and Normal Bowel Sounds
Musculoskeletal: No Clubbing, No Cyanosis, Edema, Right Lower Extrem and Edema, Left Lower Extrem
Skin: Warm and Dry
Neuro: AO x 3
Psych: Calm
[2024-09-27 08:41] LABS: Hematocrit 36.2 % (39.0-52.0); Hemoglobin 11.3 g/dL (13.0-18.0); Mean Corp Hgb Conc. 31.2 g/dL (33.0-37.0); Mean Corpuscular Volume 93.1 fL (80.0-94.0); Platelet Count 127 10^3/uL (130-400); Red Blood Cell Count 3.89 10^6/uL (4.70-6.10); Red Cell Dist. Width 14.9 % (11.5-14.5); White Blood Cell Count 6.1 10^3/uL (4.8-10.8)
[2024-09-27 09:09] LABS: ALT (SGPT) < 10 U/L (0-50); AST (SGOT) 14 U/L (17-59); Albumin 3.2 g/dl (3.5-5.0); Alkaline Phosphatase 100 U/L (38-126); Blood Urea Nitrogen 55 mg/dl (9-20); Calcium 7.1 mg/dl (8.4-10.2); Carbon Dioxide 22 mmol/L (22-30); Chloride 107 mmol/L (98-107); Estimated Creatinine Clearance 33 ml/min; Glucose 90 mg/dl (70-99); Magnesium 1.8 mg/dl (1.6-2.3); Potassium 4.7 mmol/L (3.5-5.1); Sodium 138 mmol/L (135-145); Total Bilirubin 0.3 mg/dl (0.2-1.3); Total Protein 5.7 g/dl (6.3-8.2); eGFR 24.93
[2024-09-27] MEDS: APRESOLINE 25 MG PO ×3 (09:51→20:50)
[2024-09-27] MEDS: VITAMIN B1 100 MG PO ×2 (09:51→20:50)
[2024-09-27] MEDS: LIPITOR 40 MG PO (09:51)
[2024-09-27] MEDS: PLAVIX 75 MG PO (09:51)
[2024-09-27] MEDS: SODIUM BICARBONATE 650 MG PO ×3 (09:51→20:50)
[2024-09-27] MEDS: HEPARIN 5000 UNITS SC ×2 (09:52→23:17)
[2024-09-27] MEDS: COREG 6.25 MG PO ×2 (09:52→20:50)
[2024-09-27] MEDS: FOLVITE 1 MG PO (09:52)
[2024-09-27] MEDS: NICODERM TRANSDERMAL 14 MG TRANSDERM (09:53)
[2024-09-27] MEDS: LASIX 80 MG IV ×2 (09:55→17:35)
[2024-09-27] MEDS: NITRO-DUR 0.2 MG TRANSDERM (10:18)
--- NOTE | 2024-09-27 10:30 | W.PN.UPDATE ---
Update Note
Progress Note Update
I saw and evaluated the patient. I reviewed the resident�s note and agree with findings and plan as documented in the resident�s note.
Denies shortness of breath. States he was unable to tolerate BIPAP overnight.
Gen: remains NAD, awake and alert
Eyes: EOMI, PERRLA, no scleral icterus.
Neck: supple.
CV: continues to remain RRR, +S1/S2, no m/r/g.
Resp: CTAB, no rales, wheezes, or rhonchi.
Abd: +BS, soft, NT, ND
Skin: No rashes. 3+ B/L LE edema
Neuro: CN 2-12 intact, non-focal.
Psych: Normal mood and affect.
Echo: Normal left ventricular chamber size. Moderately reduced left ventricular
systolic function. Left ventricular ejection fraction is 35-40% by volumetric
assessment. Global hypokinesis with inferior and inferolateral akinesis.
Mild concentric left ventricular hypertrophy. Stage II diastolic dysfunction
suggestive of abnormal relaxation and increased filling pressures.
Mitral valve opens normally. Mild mitral regurgitation.
Indexed LA volume is severely abnormal (> 48 mL/m2).
Trileaflet thickened aortic valve. Aortic valve opens normally. Mild aortic
regurgitation.
Small pericardial effusion. Right and left pleural effusion present.
CXR: Cardiomegaly with pulmonary edema and bilateral pleural effusions.
Acute on chronic HFrEF:
-echo above, EF 35-40%, G2DD, LA dilatation
-currently on Lasix 80mg IV Q12H. Still with significant volume O/L, will increase to 80mg IV Q8H.
-daily wts, I/Os
-cont Coreg at lower dose with prior bradycardia
-hold Entresto/Jardiance with CKD4
Non-AG met acidosis and respiratory acidosis:
-cont PO bicarb
-BIPAP HS (suspect underlying OHS/JAD), will need BIPAP on d/c
-VBG 09/26/24 reviewed, venous pH acceptable
Other problems:
Severe hyperkalemia: s/p D50W and insulin, Lokelma, Kayexalate, resolved
Tobacco abuse disorder: Patient reports he smoked a pack a day for over 40 years. Nicotine patch. Counseled on smoking cessation.
Alcohol abuse disorder: states he quit ~ 1 year ago, cont thiamine/folate
Infrarenal abdominal aortic aneurysm of 8 cm: seen by vascular surgery, no surgical intervention during this hospitalization, outpt f/u
HLD: cont statin
PAD: cont plavix/statin
Hypocalcemia: s/p IV calcium gluconate. Pt vit D deficient, cont ergocalciferol 50,000IU Qweek x 6 doses (first dose was 09/26/24)
Hypomagnesemia, resolved
Obesity due to excess calories
CK4, trend Cr with diuresis
Discussed with cardiology/renal.
FULL/Heparin
Total time spent on today's encounter was 51 minutes which included time spent in counseling the patient/family regarding diagnosis and treatment plan as listed above, goals of care, and symptom management. Case was discussed with nursing staff,
specialists, and care coordinators/case management. All labs and imaging personally reviewed by me. Remainder the time spent in detailed review of previous records, lab data, imaging, and other medical provider documentation.
--- NOTE | 2024-09-27 14:01 | W.PN.NEPH.PH ---
Today's Communication / Plan
-
Escalate diuretics
Follow BMP
Assessment/Plan
-
Impression:
LOURDES
CKD 4 (baseline 2.65 07/11)
Hyperkalemia
Decompensated congestive heart failure
Cardiomyopathy with EF of 20 to 30%
Hypocalcemia
Nongap metabolic acidosis
PVD/AAA 8cm
Plan:
LOURDES in setting of decompensated congestive heart failure
-Baseline labs not available, Creatinine at 2.9, post contrast on 09/24
Remains grossly nonoliguric on diuretic support with weights dropping
improved hyperkalemia
Diuretics escalated to Lasix 80 mg IV every 8hr, will also provide metolazone daily 5mg
bland urinalysis, urine PCR 2.8gm/gm of pl-tjcemic-wribm paraprotein w/u
remains Nonoliguric, continue Lasix 80 twice a day
wt no sig change, likely need metolazone too
stable metabolic acidosis continue oral bicarbonate
improving calcium and magnesium- pending PTH and vitamin D def noted-add D2 weekly
avoid nephrotoxins, continue to hold Entresto and SGLT2I
possible JAD on BIPAP at night
Accurate I's and O's and daily weights daily
reviewed with pt about high risk of HD need if renal function worsens
timing of Thoracoabdominal AAA repair per vascular after d/c
Discussed with the patient
-
-
Date of Service: September 27, 2024
CC / HPI / ROS
-
Chief Complaint:
LOURDES
History of Present Illness:
cr at 2.9 non oliguric with out conde
Bp stable, wt decreasing slowly
k 4.7 better,
Review of Systems:
Feels better, less short of breath. No pain
hypoxic during sleep and used BIPAP
Weights down
Labs
-
Labs:
WBC 6.1 10^3/uL (4.8-10.8) 09/27/24 07:38
RBC 3.89 10^6/uL (4.70-6.10) L 09/27/24 07:38
Hgb 11.3 g/dL (13.0-18.0) L 09/27/24 07:38
Hct 36.2 % (39.0-52.0) L 09/27/24 07:38
Plt Count 127 10^3/uL (130-400) L 09/27/24 07:38
Sodium 138 mmol/L (135-145) 09/27/24 07:38
Potassium 4.7 mmol/L (3.5-5.1) 09/27/24 07:38
Chloride 107 mmol/L (98-107) 09/27/24 07:38
Carbon Dioxide 22 mmol/L (22-30) 09/27/24 07:38
BUN 55 mg/dl (9-20) H 09/27/24 07:38
Creatinine 2.9 mg/dL (0.7-1.3) H 09/27/24 07:38
eGFR 24.93 09/27/24 07:38
Glucose 90 mg/dl (70-99) 09/27/24 07:38
Calcium 7.1 mg/dl (8.4-10.2) L 09/27/24 07:38
Tym-V-Xgkinsthxut Pept 5130 pg/ml 09/24/24 09:28
Albumin 3.2 g/dl (3.5-5.0) L 09/27/24 07:38
Physical Exam
-
Vital Signs:
Vital Signs
Temp Pulse Resp BP Pulse Ox
98 F 73 22 122/75 98
09/27/24 11:49 09/27/24 11:49 09/27/24 11:49 09/27/24 11:49 09/27/24 11:49
Cardiovascular:: Regular rate and rhythm
Respiratory:: Bilateral: Coarse
Lung Excursion:: Normal
Abdomen:: Nontender and Soft
Extremity Edema:: +2: Bilateral:
Conde Catheter: No
[2024-09-27 15:16] LABS: 24 Hour Urine Total Volume 3000 ml; Urine Protein 152 mg/dl (0-12)
[2024-09-27] MEDS: ZAROXOLYN 5 MG PO (16:15)
--- NOTE | 2024-09-27 16:40 | W.PN.CARDCBS ---
Addendum entered and electronically signed by Amauri Arias MD 09/27/24 18:12:
54-year-old man who presented for left heart catheterization on September 24. Nonobstructive CAD, but pulmonary capillary wedge of 44, EF 25-30%. Baseline creatinine of 2.65. Found to have very large thoracoabdominal aortic aneurysm greater than 8
cm and infrarenal abdominal aneurysm, occluded right external iliac with bilateral common iliac stenoses and occluded l left SFA. Mild to moderate bilateral renal artery stenosis
PMH: Moderate aortic regurgitation, nonischemic cardiomyopathy EF 25-30%
Current medications: Atorvastatin 40 mg a day, Plavix 75 mg a day, subcu heparin, nicotine patch, thiamine, folic acid, bicarbonate, carvedilol 6.25 twice daily, nitro Dur patch 0.2 mg/h, hydralazine 25 mg 3 times daily, furosemide 80 mg IV every 8
hours, metolazone 5 mg daily
124/78, pulse 76, respirate 20, weight is 104.1 kg, was 107.2 kg on admission
EKG sinus rhythm, low volts, prolonged QT, nonspecific ST and T changes
Hemoglobin is 11.3, platelets are 127, BUN and creatinine are 55 and 2.9, creatinine was 2.9 on admission and is was 3.1 yesterday
Impression: See below
Major issues are large thoracoabdominal and infrarenal aneurysm, nonischemic cardiomyopathy, severe bilateral PAD, moderate aortic regurgitation and stage IV CKD/LOURDES. Alcohol tobacco use
Plan:
Overall he is substantially improved and feels much better. Still volume overloaded but much improved.
He is now hydralazine and nitrates as well as atorvastatin, Plavix, high-dose IV Lasix and metolazone. He is not on aspirin. As outpatient, he had been on Jardiance, which is currently on hold, also had been on Entresto
Continue IV furosemide and metolazone.
When volume status optimized, okay to discharge with follow-up to his primary store specialist
Original Note:
Today's Communication / Plan
-
Continue diuresis with IV Lasix and metolazone
Follow creatinine
Tubigrip stockings
Wean supplemental O2
Med optimization of nonischemic cardiomyopathy as able
Impression / Plan
-
PCP: Dr. Jammie Tinoco
Cardiology: Dr. Ramos
Impression:
Admitted to after elective cath for multiple medical problems 09/24/24
CKD 4
Cre 2.65 06/26/24, Cre 2.76 and eGFR 26 09/14/24
Hyperkalemia
potassium 5.6 09/14/24
Nonobstructive CAD by cath 09/24/24
Acute HFrEF
PCWP 44 on RHC 09/24/24
NICM EF EF 25 to 30% by echo 06/13/24
Mild MR
Moderate aortic regurgitation
Sinus bradycardia
Suspected JAD
PAD
Occluded right external iliac, multifocal mild to moderate narrowing of bilateral common iliac arteries, occluded left SFA and significant atherosclerotic disease in the left popliteal artery and LLE arteries by CTA 05/2624
Mild to moderate stenosis of bilateral renal arteries
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
Echo 06/13/2024: EF 27.2% by Koehler's method, mild to moderate increased LV cavity with severe eccentric LVH, grade 2 diastolic dysfunction, normal RV size with mildly decreased RV systolic function, small pericardial effusion, mild MR, moderate
aortic regurgitation
Echo 10/04/2024: 35-40%, inferior hypokinesis, mild MR, mild AR, small pericardial effusion
RHC: PCWP 44, PA 76/41, RA 23
LHC: 20-30% LMain, LAD, 50-60% OM1
Plan:
-He remains with evidence of volume overload on exam. Diuretics escalated to IV Lasix 80 mg every 8 hours with metolazone 5 mg daily. Creatinine stable at 2.9
-Wean supplemental oxygen as able
-CHF education
-Tubigrip stockings ordered
-Echo with EF 35 to 40%, nonischemic cardiomyopathy as underwent cardiac catheterization with results as above this admission.
-Continue Coreg, nitrates, hydralazine. Could consider candidacy for SGLT2 inhibitor, however with baseline renal insufficiency may hold off
-In sinus rhythm on review of telemetry
-May require evaluation at tertiary care center for significant vascular disease including 8.5 cm thoracic aortic aneurysm
Progress Note - [employer] In[employer]
Subjective
Date of Service: September 27, 2024
Denies chest pain, abdominal pain. Reports good urine output with IV Lasix.
Objective
Labs:
09/27/24 07:38
09/27/24 07:38
Labs
Hgb 11.3 g/dL (13.0-18.0) L 09/27/24 07:38
Hct 36.2 % (39.0-52.0) L 09/27/24 07:38
Plt Count 127 10^3/uL (130-400) L 09/27/24 07:38
Sodium 138 mmol/L (135-145) 09/27/24 07:38
Potassium 4.7 mmol/L (3.5-5.1) 09/27/24 07:38
BUN 55 mg/dl (9-20) H 09/27/24 07:38
Creatinine 2.9 mg/dL (0.7-1.3) H 09/27/24 07:38
Glucose 90 mg/dl (70-99) 09/27/24 07:38
Vital Signs and I&O:
Vital Signs
Temp Pulse Resp BP Pulse Ox
97.7 F 76 20 124/78 96
09/27/24 15:11 09/27/24 15:11 09/27/24 15:11 09/27/24 15:11 09/27/24 15:11
Vital Signs
Temp Pulse Resp BP Pulse Ox
97.7 F 76 20 124/78 96
09/27/24 15:11 09/27/24 15:11 09/27/24 15:11 09/27/24 15:11 09/27/24 15:11
Intake & Output
09/25/24 09/26/24 09/27/24 09/28/24
07:59 07:59 07:59 07:59
Intake Total 660 / 660 870 / 870 840 / 840
Output Total 2300 / 2300 1850 / 1850 3450 / 3450
Balance -1640 / -1640 -980 / -980 -2610 / -2610
Physical Exam
Physical Exam
GEN: No distress, awake, alert, oriented x3. On supplemental oxygen
HEENT: supple, anicteric, mmm, EOMI
LUNGS: CTA bilaterally, no wheezes/rales
CV: Reg, S1/S2, no murmur
ABD: soft, BS+, NT/ND
EXT: No cyanosis, clubbing. 4+ edema of bilateral lower extremity to level of thigh
NEURO: Gross non-focal
SKIN: Warm, pink, dry. No rash
[2024-09-28] MEDS: LASIX 80 MG IV ×3 (03:12→16:50)
[2024-09-28 03:49] VITALS: BP 114/66
[2024-09-28 06:00] VITALS: BMI 36.1
[2024-09-28 07:39] LABS: Hematocrit 36.7 % (39.0-52.0); Hemoglobin 11.7 g/dL (13.0-18.0); Mean Corp Hgb Conc. 31.9 g/dL (33.0-37.0); Mean Corpuscular Hgb 29.2 pg (27.0-31.0); Mean Corpuscular Volume 91.5 fL (80.0-94.0); Mean Platelet Volume 10.6 fL (7.4-10.4); Platelet Count 118 10^3/uL (130-400); Red Blood Cell Count 4.01 10^6/uL (4.70-6.10); Red Cell Dist. Width 14.7 % (11.5-14.5); White Blood Cell Count 5.5 10^3/uL (4.8-10.8)
[2024-09-28 08:11] LABS: ALT (SGPT) 11 U/L (0-50); AST (SGOT) 15 U/L (17-59); Albumin 3.4 g/dl (3.5-5.0); Alkaline Phosphatase 109 U/L (38-126); Blood Urea Nitrogen 58 mg/dl (9-20); Calcium 7.6 mg/dl (8.4-10.2); Carbon Dioxide 25 mmol/L (22-30); Chloride 103 mmol/L (98-107); Estimated Creatinine Clearance 32 ml/min; Glucose 104 mg/dl (70-99); Magnesium 1.7 mg/dl (1.6-2.3); Potassium 4.5 mmol/L (3.5-5.1); Sodium 138 mmol/L (135-145); Total Bilirubin 0.3 mg/dl (0.2-1.3); eGFR 24.93
[2024-09-28 08:34] VITALS: BP 129/78
--- NOTE | 2024-09-28 08:52 | W.PN.HOSP.TC ---
Today's Communication/Plan
-
.
Assessment / Plan
Assessment / Plan
IMPRESSION:
Acute decompensated CHF
LOURDES vs CKD stage IV
Hyperkalemia
Hypocalcemia
Normocytic anemia
Metabolic acidosis
Infrarenal 8cm AAA
PAD
Tobacco use disorder
Alcohol use disorder
HLD
PLAN:
Decompensated HFrEF
- cont home carvedilol
- diurese w lasix 80mg tid
- metolazone 5mg daily
- hold SGLT2i, entresto
- 09/24 CXR: Cardiomegaly with pulmonary edema and bilateral pleural effusions
- 09/24 echo: EF 35-40%, global hypokinesis with inferior and inferolateral akinesis.
- I's&O's, daily weights
- keep K>4, Mg>2
- cardiology following
HTN
- hydralazine, nitroglycerin as needed
LOURDES vs underlying CKD stage IV
- Cr 3.1 peak, stable
- hold SGLT-2i, entresto
- monitor cmp
- nephro following
Hyperkalemia
- resolved
- insulin w D50, lokelma given
- kayexalate per nephro
Hypomagnesemia
- resolved
Hypocalcemia
Hypoalbuminemia
- replete calcium - ergocalciferol 50,000IU Qweek x 6 doses
- pth pending
Normocytic anemia
- stable
- monitor cbc
Tobacco use disorder
- nicotine patch
- counciled on smoking cessation
Alcohol use disorder
- reports last drink 1 yr ago
- thiamine, folate
- LFTs
Infrarenal AAA, measuring 8cm
- vascular surgery consulted - pt to be medically optimized and f/u outpatient
HLD
- cont statin, plavix
PAD
- cont statin/plavix
Obesity due to excess calories
- concern for JAD/OHS
- BiPAP nocturnal
- pulm consulted
Diet: cholesterol lowering
DVT ppx: heparin
Code status: FULL CODE
Anticipated Discharge: 24 - 48 hours
Subjective/Interval History
-
Date of Service: September 28, 2024
Mr. Ismael Uriostegui is a 54yo M pmh HFrEF (EF 35-40%), stage IV CKD, AAA, HLD admitted for decompensated HF. No acute overnight events.
Objective Data
-
Labs:
Laboratory Results
09/28/24
07:11
WBC 5.5
Hgb 11.7 L
Hct 36.7 L
Plt Count 118 L
Sodium 138
Potassium 4.5
Chloride 103
Carbon Dioxide 25
BUN 58 H
Creatinine 2.9 H
Glucose 104 H
Calcium 7.6 L
Total Bilirubin 0.3
AST 15 L
ALT 11
Alkaline Phosphatase 109
Vital Signs:
Vital Signs
Temp Pulse Resp BP Pulse Ox
97.6 F 66 20 129/78 99
09/28/24 08:34 09/28/24 08:34 09/28/24 08:34 09/28/24 08:34 09/28/24 08:34
I&O
09/27/24 09/28/24 09/29/24
06:59 06:59 06:59
Intake Total 840 / 840 1180 / 1180
Output Total 4100 / 4100 3400 / 3400
Balance -3260 / -3260 -2220 / -2220
Review of Systems
-
History Source: Patient
Constitutional: Reports No Symptoms
EENT: Reports No Symptoms Reported
Respiratory: Reports No Symptoms
Cardiac: Reports No Symptoms
Abdomen/GI: Reports No Symptoms
Genitourinary: Denies No Symptoms
Musculoskeletal: Reports No Symptoms
Skin: Reports No Symptoms
Neuro: Reports No Symptoms
Physical Exam
-
General: Well Developed, Well Nourished and Obese
HEENT: Normocephalic and Atraumatic
Respiratory: Wheezes
Cardiac: Regular Rhythm and S1/S2
GI: Soft, Nontender, Nondistended and Normal Bowel Sounds
Musculoskeletal: No Clubbing, No Cyanosis, Edema, Right Lower Extrem and Edema, Left Lower Extrem
Skin: Warm and Dry
Neuro: AO x 3
Psych: Calm
[2024-09-28] MEDS: VITAMIN B1 100 MG PO ×2 (09:04→20:43)
[2024-09-28] MEDS: LIPITOR 40 MG PO (09:04)
[2024-09-28] MEDS: COREG 6.25 MG PO ×2 (09:05→20:43)
[2024-09-28] MEDS: FOLVITE 1 MG PO (09:05)
[2024-09-28] MEDS: HEPARIN 5000 UNITS SC ×2 (09:05→20:43)
[2024-09-28] MEDS: APRESOLINE 25 MG PO ×3 (09:05→20:43)
[2024-09-28] MEDS: PLAVIX 75 MG PO (09:05)
[2024-09-28] MEDS: SODIUM BICARBONATE 650 MG PO ×3 (09:05→20:43)
[2024-09-28] MEDS: NICODERM TRANSDERMAL 14 MG TRANSDERM (09:10)
[2024-09-28] MEDS: NITRO-DUR 0.2 MG TRANSDERM (09:11)
[2024-09-28] MEDS: ZAROXOLYN 5 MG PO (09:25)
[2024-09-28 10:19] LABS: Intact PTH 289.1 pg/ml (13.6-85.8)
--- NOTE | 2024-09-28 10:25 | W.PN.UPDATE ---
Update Note
Progress Note Update
I saw and evaluated the patient. I reviewed the resident�s note and agree with findings and plan as documented in the resident�s note.
Denies shortness of breath. States he was unable to tolerate BIPAP overnight.
Gen: continues to remain NAD, awake and alert
Eyes: EOMI, PERRLA, no scleral icterus.
Neck: supple.
CV: RRR, +S1/S2, no m/r/g.
Resp: remains CTAB, no rales, wheezes, or rhonchi.
Abd: +BS, soft, NT, ND
Skin: No rashes. 2-3+ B/L LE edema
Neuro: CN 2-12 intact, non-focal.
Psych: Normal mood and affect.
Echo: Normal left ventricular chamber size. Moderately reduced left ventricular
systolic function. Left ventricular ejection fraction is 35-40% by volumetric
assessment. Global hypokinesis with inferior and inferolateral akinesis.
Mild concentric left ventricular hypertrophy. Stage II diastolic dysfunction
suggestive of abnormal relaxation and increased filling pressures.
Mitral valve opens normally. Mild mitral regurgitation.
Indexed LA volume is severely abnormal (> 48 mL/m2).
Trileaflet thickened aortic valve. Aortic valve opens normally. Mild aortic
regurgitation.
Small pericardial effusion. Right and left pleural effusion present.
CXR: Cardiomegaly with pulmonary edema and bilateral pleural effusions.
Acute on chronic HFrEF:
-echo above, EF 35-40%, G2DD, LA dilatation
-cont Lasix 80mg IV Q8H and metolazone
-daily wts, I/Os
-cont Coreg at lower dose with prior bradycardia
-hold Entresto/Jardiance with CKD4
Non-AG met acidosis and respiratory acidosis:
-cont PO bicarb
-BIPAP HS (suspect underlying OHS/JAD), will need BIPAP on d/c
-VBG 09/26/24 reviewed, venous pH acceptable
Other problems:
Severe hyperkalemia: s/p D50W and insulin, Lokelma, Kayexalate, resolved
Tobacco abuse disorder: Patient reports he smoked a pack a day for over 40 years. Nicotine patch. Counseled on smoking cessation.
Alcohol abuse disorder: states he quit ~ 1 year ago, cont thiamine/folate
Infrarenal abdominal aortic aneurysm of 8 cm: seen by vascular surgery, no surgical intervention during this hospitalization, outpt f/u
HLD: cont statin
PAD: cont plavix/statin
Hypocalcemia: s/p IV calcium gluconate. Pt vit D deficient, cont ergocalciferol 50,000IU Qweek x 6 doses (first dose was 09/26/24)
Hypomagnesemia, resolved
Obesity due to excess calories
CK4, trend Cr with diuresis
FULL/Heparin
[2024-09-28 11:54] VITALS: BP 128/74
--- NOTE | 2024-09-28 14:50 | W.PN.NEPH.PH ---
Today's Communication / Plan
-
Maintain IV diuresis and metolazone
Follow BMP
Assessment/Plan
-
Impression:
LOURDES
CKD 4 (baseline 2.65 07/11)
Hyperkalemia
Decompensated congestive heart failure
Cardiomyopathy with EF of 20 to 30%
Hypocalcemia
Nongap metabolic acidosis
PVD/AAA 8cm
Plan:
LOURDES in setting of decompensated congestive heart failure
Creatinine stable at 2.9, post contrast on 09/24, grossly nonoliguric with almost 5 L of urine output
Weights 3 kg down
Remains grossly nonoliguric on diuretic support with weights dropping
improved hyperkalemia
Maintain Lasix 80 mg IV and daily metolazone daily 5mg
bland urinalysis, urine PCR 2.8gm/gm of [id number]-[id number] paraprotein w/u
remains Nonoliguric, continue Lasix 80 twice a day
wt no sig change, likely need metolazone too
stable metabolic acidosis continue oral bicarbonate
improving calcium and magnesium- pending PTH and vitamin D def noted-add D2 weekly
avoid nephrotoxins, continue to hold Entresto and SGLT2I
possible JAD on BIPAP at night
Accurate I's and O's and daily weights daily
reviewed with pt about high risk of HD need if renal function worsens
timing of Thoracoabdominal AAA repair per vascular after d/c
-
-
Date of Service: September 28, 2024
CC / HPI / ROS
-
Chief Complaint:
LOURDES
History of Present Illness:
cr at 2.9 non oliguric with out conde
Bp stable
Review of Systems:
Feels better, less short of breath. No pain
hypoxic during sleep and used BIPAP
Weights down
Grossly non oliguric
Labs
-
Labs:
WBC 5.5 10^3/uL (4.8-10.8) 09/28/24 07:11
RBC 4.01 10^6/uL (4.70-6.10) L 09/28/24 07:11
Hgb 11.7 g/dL (13.0-18.0) L 09/28/24 07:11
Hct 36.7 % (39.0-52.0) L 09/28/24 07:11
Plt Count 118 10^3/uL (130-400) L 09/28/24 07:11
Sodium 138 mmol/L (135-145) 09/28/24 07:11
Potassium 4.5 mmol/L (3.5-5.1) 09/28/24 07:11
Chloride 103 mmol/L (98-107) 09/28/24 07:11
Carbon Dioxide 25 mmol/L (22-30) 09/28/24 07:11
BUN 58 mg/dl (9-20) H 09/28/24 07:11
Creatinine 2.9 mg/dL (0.7-1.3) H 09/28/24 07:11
eGFR 24.93 09/28/24 07:11
Glucose 104 mg/dl (70-99) H 09/28/24 07:11
Calcium 7.6 mg/dl (8.4-10.2) L 09/28/24 07:11
Cag-J-Qxkcgpumgil Pept 5130 pg/ml 09/24/24 09:28
Albumin 3.4 g/dl (3.5-5.0) L 09/28/24 07:11
Physical Exam
-
Vital Signs:
Vital Signs
Temp Pulse Resp BP Pulse Ox
98 F 69 20 128/74 95
09/28/24 11:54 09/28/24 11:54 09/28/24 11:54 09/28/24 11:54 09/28/24 11:54
Cardiovascular:: Regular rate and rhythm
Respiratory:: Bilateral: Coarse
Lung Excursion:: Normal
Abdomen:: Nontender and Soft
Extremity Edema:: +1: Bilateral:
Conde Catheter: No
[2024-09-28 15:54] VITALS: BP 127/67
[2024-09-28 19:50] VITALS: BP 129/81
[2024-09-28 23:46] VITALS: BP 120/82
[2024-09-29 03:22] VITALS: BP 124/78
[2024-09-29] MEDS: LASIX 80 MG IV ×3 (04:22→19:40)
[2024-09-29 06:00] VITALS: BMI 35.4
[2024-09-29 06:46] LABS: Hematocrit 37.1 % (39.0-52.0); Mean Corp Hgb Conc. 32.3 g/dL (33.0-37.0); Mean Corpuscular Hgb 28.8 pg (27.0-31.0); Mean Corpuscular Volume 89.2 fL (80.0-94.0); Mean Platelet Volume 10.9 fL (7.4-10.4); Platelet Count 136 10^3/uL (130-400); Red Blood Cell Count 4.16 10^6/uL (4.70-6.10); Red Cell Dist. Width 14.5 % (11.5-14.5); White Blood Cell Count 6.4 10^3/uL (4.8-10.8)
[2024-09-29 07:07] LABS: ALT (SGPT) 12 U/L (0-50); AST (SGOT) 18 U/L (17-59); Albumin 3.7 g/dl (3.5-5.0); Alkaline Phosphatase 105 U/L (38-126); Blood Urea Nitrogen 63 mg/dl (9-20); Calcium 7.7 mg/dl (8.4-10.2); Carbon Dioxide 29 mmol/L (22-30); Chloride 98 mmol/L (98-107); Estimated Creatinine Clearance 31 ml/min; Glucose 105 mg/dl (70-99); Potassium 4.6 mmol/L (3.5-5.1); Sodium 137 mmol/L (135-145); Total Bilirubin 0.4 mg/dl (0.2-1.3); Total Protein 6.3 g/dl (6.3-8.2); eGFR 23.93
[2024-09-29 07:55] VITALS: BP 89/66
--- NOTE | 2024-09-29 07:59 | W.PN.HOSP.TC ---
Today's Communication/Plan
-
.
Assessment / Plan
Assessment / Plan
IMPRESSION:
Acute decompensated CHF
LOURDES vs CKD stage IV
Hyperkalemia
Hypocalcemia
Normocytic anemia
Metabolic acidosis
Infrarenal 8cm AAA
PAD
Tobacco use disorder
Alcohol use disorder
HLD
PLAN:
Decompensated HFrEF
- cont home carvedilol
- diurese w lasix 80mg tid
- metolazone 5mg daily
- hold SGLT2i, entresto
- 09/24 CXR: Cardiomegaly with pulmonary edema and bilateral pleural effusions
- 09/24 echo: EF 35-40%, global hypokinesis with inferior and inferolateral akinesis.
- I's&O's, daily weights
- keep K>4, Mg>2
- cardiology following
HTN
- hydralazine, nitroglycerin as needed
LOURDES vs underlying CKD stage IV
- Cr 3.1 peak, stable
- hold SGLT-2i, entresto
- monitor cmp
- nephro following
Hyperkalemia
- resolved
- insulin w D50, lokelma given
- kayexalate per nephro
Hypomagnesemia
- resolved
Hypocalcemia
Hypoalbuminemia
- replete calcium - ergocalciferol 50,000IU Qweek x 6 doses
- pth pending
Normocytic anemia
- stable
- monitor cbc
Tobacco use disorder
- nicotine patch
- counciled on smoking cessation
Alcohol use disorder
- reports last drink 1 yr ago
- thiamine, folate
- LFTs
Infrarenal AAA, measuring 8cm
- vascular surgery consulted - pt to be medically optimized and f/u outpatient
HLD
- cont statin, plavix
PAD
- cont statin/plavix
Obesity due to excess calories
- concern for JAD/OHS
- BiPAP nocturnal
- pulm consulted
Diet: cholesterol lowering
DVT ppx: heparin
Code status: FULL CODE
Anticipated Discharge: Within 24 hours
Subjective/Interval History
-
Date of Service: September 29, 2024
Mr. Ismael Uriostegui is a 54yo M pmh HFrEF (EF 35-40%), stage IV CKD, AAA, HLD admitted for decompensated HF. Pt agitated and wants to go home today. He feels like we 'aren't doing anything' to treat him.
Objective Data
-
Labs:
Laboratory Results
09/29/24
06:23
WBC 6.4
Hgb 12.0 L
Hct 37.1 L
Plt Count 136
Sodium 137
Potassium 4.6
Chloride 98
Carbon Dioxide 29
BUN 63 H
Creatinine 3.0 H
Glucose 105 H
Calcium 7.7 L
Total Bilirubin 0.4
AST 18
ALT 12
Alkaline Phosphatase 105
Vital Signs:
Vital Signs
Temp Pulse Resp BP Pulse Ox
97.8 F 77 20 124/78 96
09/29/24 03:22 09/29/24 03:22 09/29/24 03:22 09/29/24 03:22 09/29/24 03:22
I&O
09/28/24 09/29/24 09/30/24
06:59 06:59 06:59
Intake Total 1180 / 1180 240 / 240
Output Total 3400 / 3400 3950 / 3950
Balance -2220 / -2220 -3710 / -3710
Review of Systems
-
History Source: Patient
Constitutional: Reports No Symptoms
EENT: Reports No Symptoms Reported
Respiratory: Reports No Symptoms
Cardiac: Reports No Symptoms
Abdomen/GI: Reports No Symptoms
Genitourinary: Reports No Symptoms
Musculoskeletal: Reports No Symptoms
Skin: Reports No Symptoms
Neuro: Reports No Symptoms
Physical Exam
-
General: Well Developed, Well Nourished and Obese
HEENT: Normocephalic, Atraumatic and Anicteric
Respiratory: Clear to Auscultation
Cardiac: Regular Rhythm and S1/S2
GI: Soft, Nontender, Nondistended and Normal Bowel Sounds
Musculoskeletal: No Clubbing, No Cyanosis, Edema, Right Lower Extrem and Edema, Left Lower Extrem
Skin: Warm and Dry
Neuro: AO x 3
Psych: Agitated
[2024-09-29] MEDS: SODIUM BICARBONATE 650 MG PO (08:59)
[2024-09-29] MEDS: LIPITOR 40 MG PO (08:59)
[2024-09-29] MEDS: COREG 6.25 MG PO ×2 (09:00→19:39)
[2024-09-29] MEDS: VITAMIN B1 100 MG PO ×2 (09:00→19:40)
[2024-09-29] MEDS: NICODERM TRANSDERMAL 14 MG TRANSDERM (09:00)
[2024-09-29] MEDS: APRESOLINE 25 MG PO ×3 (09:00→20:57)
[2024-09-29] MEDS: ZAROXOLYN 5 MG PO (09:00)
[2024-09-29] MEDS: HEPARIN 5000 UNITS SC ×2 (09:00→19:40)
[2024-09-29] MEDS: PLAVIX 75 MG PO (09:00)
[2024-09-29] MEDS: FOLVITE 1 MG PO (09:00)
[2024-09-29] MEDS: NITRO-DUR 0.2 MG TRANSDERM (09:15)
--- NOTE | 2024-09-29 10:20 | W.PN.UPDATE ---
Update Note
Progress Note Update
I saw and evaluated the patient. I reviewed the resident�s note and agree with findings and plan as documented in the resident�s note.
No new complaints.
Gen: continues to remain NAD, awake and alert
Eyes: EOMI, PERRLA, no scleral icterus.
Neck: supple.
CV: RRR, +S1/S2, no m/r/g.
Resp: continues to remain CTAB, no rales, wheezes, or rhonchi.
Abd: +BS, soft, NT, ND
Skin: No rashes. 1-2+ B/L LE edema
Neuro: CN 2-12 intact, non-focal.
Psych: Normal mood and affect.
Echo: Normal left ventricular chamber size. Moderately reduced left ventricular
systolic function. Left ventricular ejection fraction is 35-40% by volumetric
assessment. Global hypokinesis with inferior and inferolateral akinesis.
Mild concentric left ventricular hypertrophy. Stage II diastolic dysfunction
suggestive of abnormal relaxation and increased filling pressures.
Mitral valve opens normally. Mild mitral regurgitation.
Indexed LA volume is severely abnormal (> 48 mL/m2).
Trileaflet thickened aortic valve. Aortic valve opens normally. Mild aortic
regurgitation.
Small pericardial effusion. Right and left pleural effusion present.
CXR: Cardiomegaly with pulmonary edema and bilateral pleural effusions.
Acute on chronic HFrEF:
-echo above, EF 35-40%, G2DD, LA dilatation
-cont Lasix 80mg IV Q8H and metolazone
-daily wts (down 8Kg), I/Os
-cont Coreg at lower dose with prior bradycardia
-hold Entresto/Jardiance with CKD4
Non-AG met acidosis and respiratory acidosis:
-stop PO bicarb with HCO3- 29 today
-BIPAP HS (suspect underlying OHS/JAD), will need BIPAP on d/c but doubt pt will be compliant
-VBG 09/26/24 reviewed, venous pH acceptable
-repeat VBG
Other problems:
Severe hyperkalemia: s/p D50W and insulin, Lokelma, Kayexalate, resolved
Tobacco abuse disorder: Patient reports he smoked a pack a day for over 40 years. Nicotine patch. Counseled on smoking cessation.
Alcohol abuse disorder: states he quit ~ 1 year ago, cont thiamine/folate
Infrarenal abdominal aortic aneurysm of 8 cm: seen by vascular surgery, no surgical intervention during this hospitalization, outpt f/u
HLD: cont statin
PAD: cont plavix/statin
Hypocalcemia: s/p IV calcium gluconate. Pt vit D deficient, cont ergocalciferol 50,000IU Qweek x 6 doses (first dose was 09/26/24)
Hypomagnesemia, resolved
Obesity due to excess calories
CK4, trend Cr with diuresis
FULL/Heparin
[2024-09-29 11:26] LABS: Venous Blood Gas B.E. 5.7 mmol/L (-4 to +4); Venous Blood Gas HCO3 32.4 mmol/L (22-27); Venous Blood Gas O2 Sat % 97.9 %; Venous Blood Gas pCO2 56 mmHg (35-48); Venous Blood Gas pH 7.37 (7.32-7.43); Venous Blood Gas pO2 83 mmHg (30-50)
[2024-09-29 11:41] VITALS: BP 131/91
--- NOTE | 2024-09-29 12:25 | W.PN.NEPH.PH ---
Today's Communication / Plan
-
Lasix adjusted to 80 mg IV twice daily
Follow BMP
Assessment/Plan
-
Impression:
LOURDES
CKD 4 (baseline 2.65 07/11)
Hyperkalemia
Decompensated congestive heart failure
Cardiomyopathy with EF of 20 to 30%
Hypocalcemia
Nongap metabolic acidosis
PVD/AAA 8cm
Plan:
LOURDES in setting of decompensated congestive heart failure
Creatinine up to 3 but still within baseline, BUN climbing to 63 , evolving contraction metabolic alkalosis post contrast on 09/24, grossly nonoliguric with almost 5 L of urine output greater than 3.8 L
Weights down
Remains grossly nonoliguric on diuretic support with weights dropping
improved hyperkalemia
Will change Lasix to 80 mg IV twice daily and maintain daily metolazone
Venous blood gas reviewed indicating persistent hypercapnia
bland urinalysis, urine PCR 2.8gm/gm of [id number]-fdieg paraprotein w/u
improving calcium and magnesium- pending PTH and vitamin D def noted-add D2 weekly
avoid nephrotoxins, continue to hold Entresto and SGLT2I
possible JAD on BIPAP at night: Re: hypercapnia
Accurate I's and O's and daily weights daily to continue
timing of Thoracoabdominal AAA repair per vascular after d/c
Patient will need outpatient nephrology follow-up with staff accountant up in the [place] area as he will likely require eventual dialysis and will be outside of our operating system
Patient remains at high clinical risk with ongoing hypervolemia persistent renal failure requiring IV diuretics in the setting of decompensated congestive heart failure
-
-
Date of Service: September 29, 2024
CC / HPI / ROS
-
Chief Complaint:
LOURDES
History of Present Illness:
cr at 3 non oliguric with out conde
Bp stable
Review of Systems:
Feels better, less short of breath. No pain
hypoxic during sleep and used BIPAP
Weights down
Grossly non oliguric greater than 3.8 L
Labs
-
Labs:
WBC 6.4 10^3/uL (4.8-10.8) 09/29/24 06:23
RBC 4.16 10^6/uL (4.70-6.10) L 09/29/24 06:23
Hgb 12.0 g/dL (13.0-18.0) L 09/29/24 06:23
Hct 37.1 % (39.0-52.0) L 09/29/24 06:23
Plt Count 136 10^3/uL (130-400) 09/29/24 06:23
Sodium 137 mmol/L (135-145) 09/29/24 06:23
Potassium 4.6 mmol/L (3.5-5.1) 09/29/24 06:23
Chloride 98 mmol/L (98-107) 09/29/24 06:23
Carbon Dioxide 29 mmol/L (22-30) 09/29/24 06:23
BUN 63 mg/dl (9-20) H 09/29/24 06:23
Creatinine 3.0 mg/dL (0.7-1.3) H 09/29/24 06:23
eGFR 23.93 09/29/24 06:23
Glucose 105 mg/dl (70-99) H 09/29/24 06:23
Calcium 7.7 mg/dl (8.4-10.2) L 09/29/24 06:23
Rvi-V-Nsvktxuaycm Pept 5130 pg/ml 09/24/24 09:28
Albumin 3.7 g/dl (3.5-5.0) 09/29/24 06:23
Physical Exam
-
Vital Signs:
Vital Signs
Temp Pulse Resp BP Pulse Ox
97.6 F 74 16 131/91 92
09/29/24 11:41 09/29/24 11:41 09/29/24 11:41 09/29/24 11:41 09/29/24 11:41
Cardiovascular:: Regular rate and rhythm
Respiratory:: Bilateral: Coarse
Lung Excursion:: Normal
Abdomen:: Nontender and Soft
Extremity Edema:: +1: Bilateral:
Conde Catheter: No
--- NOTE | 2024-09-29 12:59 | W.PN.CARDCBS ---
Today's Communication / Plan
-
No changes in cardiac regimen at present
Defer diuretics to hospitalist and nephrology
Would be in favor of SGLT2 antagonist if affordable and nephrology/hospitalist agree
From my standpoint okay for discharge when on oral diuretic regimen
Cardiac follow-up to
Impression / Plan
-
PCP: Dr. Jammie Tinoco
Cardiology: Dr. Ramos
Impression:
Admitted to after elective cath for multiple medical problems 09/24/24
CKD 4
Cre 2.65 06/26/24, Cre 2.76 and eGFR 26 09/14/24
Hyperkalemia
potassium 5.6 09/14/24
Nonobstructive CAD by cath 09/24/24
Acute HFrEF
PCWP 44 on RHC 09/24/24
NICM EF EF 25 to 30% by echo 06/13/24
Mild MR
Moderate aortic regurgitation
Sinus bradycardia
Suspected JAD
PAD
Occluded right external iliac, multifocal mild to moderate narrowing of bilateral common iliac arteries, occluded left SFA and significant atherosclerotic disease in the left popliteal artery and LLE arteries by CTA 05/2624
Mild to moderate stenosis of bilateral renal arteries
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
Echo 06/13/2024: EF 27.2% by Koehler's method, mild to moderate increased LV cavity with severe eccentric LVH, grade 2 diastolic dysfunction, normal RV size with mildly decreased RV systolic function, small pericardial effusion, mild MR, moderate
aortic regurgitation
Echo 10/04/2024: 35-40%, inferior hypokinesis, mild MR, mild AR, small pericardial effusion
RHC: PCWP 44, PA 76/41, RA 23
LHC: 20-30% LMain, LAD, 50-60% OM1
Plan:
Overall he looks well from a cardiac standpoint. Still with some volume excess but approaching dry weight. Creatinine is stable at 3
I am satisfied with his current cardiac medications. Defer appropriate diuretic regimen to nephrology and hospitalist. Would be in favor of SGLT2 antagonist if okay with nephrology/hospitalist and if affordable
From my standpoint, okay for discharge when on oral diuretics, with follow-up to [facility]ology
Patient encouraged regarding smoking and alcohol cessation.
Progress Note - Web Publisher
Subjective
Date of Service: September 29, 2024:
He offers no plaints at present.
Medications: Atorvastatin 40 mg a day, clopidogrel 75 mg a day, subcu heparin, nicotine patch, thiamine, folic acid, carvedilol 6.25 twice daily, nitroglycerin patch 0.2 mg while awake, hydralazine 25 mg 3 times daily, metolazone 5 mg daily and
furosemide 80 IV every 12
131/91, pulse 74, respiratory rate 16, weight is 99.4 kg, on admission was 107.2 kg, intake and output -3.3 L, lungs are clear, no distress, 1+ edema, regular rate and rhythm, no obvious murmurs, abdomen benign, neck veins okay
Hemoglobin is 12, venous blood gas showed bicarb of 32 today, pH 7.37, pCO2 56, BUN/creatinine 63 and 3, essentially at baseline
Objective
Labs:
09/29/24 06:23
09/29/24 06:23
Labs
Hgb 12.0 g/dL (13.0-18.0) L 09/29/24 06:23
Hct 37.1 % (39.0-52.0) L 09/29/24 06:23
Plt Count 136 10^3/uL (130-400) 09/29/24 06:23
Sodium 137 mmol/L (135-145) 09/29/24 06:23
Potassium 4.6 mmol/L (3.5-5.1) 09/29/24 06:23
BUN 63 mg/dl (9-20) H 09/29/24 06:23
Creatinine 3.0 mg/dL (0.7-1.3) H 09/29/24 06:23
Glucose 105 mg/dl (70-99) H 09/29/24 06:23
Vital Signs and I&O:
Vital Signs
Temp Pulse Resp BP Pulse Ox
36.4 C 74 16 131/91 92
09/29/24 11:41 09/29/24 11:41 09/29/24 11:41 09/29/24 11:41 09/29/24 11:41
Vital Signs
Temp Pulse Resp BP Pulse Ox
36.4 C 74 16 131/91 92
09/29/24 11:41 09/29/24 11:41 09/29/24 11:41 09/29/24 11:41 09/29/24 11:41
Intake & Output
09/27/24 09/28/24 09/29/24 09/30/24
07:59 07:59 07:59 07:59
Intake Total 840 / 840 1180 / 1180 240 / 240 300 / 300
Output Total 3450 / 3450 3400 / 3400 3950 / 3950 1310 / 1310
Balance -2610 / -2610 -2220 / -2220 -3710 / -3710 -1010 / -1010
Physical Exam
Physical Exam
See above
[2024-09-29 15:56] VITALS: BP 109/76
[2024-09-29 19:13] VITALS: BP 117/77
[2024-09-29 23:44] VITALS: BP 129/77
[2024-09-30 03:11] VITALS: BP 127/68
[2024-09-30 06:00] VITALS: BMI 34.4
[2024-09-30 07:43] VITALS: BP 134/84
[2024-09-30 07:57] LABS: Hemoglobin 11.7 g/dL (13.0-18.0); Mean Corp Hgb Conc. 31.6 g/dL (33.0-37.0); Mean Corpuscular Hgb 28.7 pg (27.0-31.0); Mean Corpuscular Volume 90.7 fL (80.0-94.0); Mean Platelet Volume 11.2 fL (7.4-10.4); Platelet Count 136 10^3/uL (130-400); Red Blood Cell Count 4.08 10^6/uL (4.70-6.10); Red Cell Dist. Width 14.5 % (11.5-14.5); White Blood Cell Count 5.9 10^3/uL (4.8-10.8)
[2024-09-30 08:18] LABS: ALT (SGPT) 16 U/L (0-50); AST (SGOT) 20 U/L (17-59); Albumin 3.7 g/dl (3.5-5.0); Alkaline Phosphatase 110 U/L (38-126); Blood Urea Nitrogen 71 mg/dl (9-20); Calcium 7.8 mg/dl (8.4-10.2); Carbon Dioxide 29 mmol/L (22-30); Chloride 95 mmol/L (98-107); Estimated Creatinine Clearance 28 ml/min; Glucose 110 mg/dl (70-99); Potassium 4.5 mmol/L (3.5-5.1); Sodium 135 mmol/L (135-145); Total Bilirubin 0.3 mg/dl (0.2-1.3); Total Protein 6.4 g/dl (6.3-8.2); eGFR 21.35
--- NOTE | 2024-09-30 08:25 | W.PN.HOSP.TC ---
Addendum entered and electronically signed by Edilberto Chau MD 09/30/24 22:14:
Attending Addendum-
I saw and evaluated the patient. I reviewed the resident�s note and agree with findings and plan as documented in the resident�s note. Sub: No complaints. Wants to go home. Denies SOB CP palps. Full 12 point ROS reviewed and negative except as
documented Exam: Vitals reviewed in chart GEN-NAD heart RRR lungs fine crackles at bases abd soft obese LE trace edema
Acute on chronic HFrEF:
-09/24 Echo-Moderately reduced left ventricular systolic function.
Left ventricular ejection fraction is 35-40% by volumetric assessment.
Global hypokinesis with inferior and inferolateral akinesis.
-change to Lasix 80mg IV Q8->Q12 cont metolazone
-daily wts (down 10Kg), I/Os
-cont Coregat lower dose with prior bradycardia
-cont hydralazine and nitro patch
-hold Entresto/Jardiance with CKD4
LOURDES on CKD 4
- likely new baseline @ 3
- cont IV lasix per nephro - would hold in am
- transition to PO on DC
Non-AG met acidosis and respiratory acidosis:
- resolved
- home 02 assessment
- BIPAP HS (suspect underlying OHS/JAD)
Other problems:
Severe hyperkalemia: s/p D50W and insulin, Lokelma, Kayexalate, resolved
Tobacco abuse disorder: Patient reports he smoked a pack a day for over 40 years. Nicotine patch. Counseled on smoking cessation.
Alcohol abuse disorder: states he quit ~ 1 year ago, cont thiamine/folate
Infrarenal abdominal aortic aneurysm of 8 cm: seen by vascular surgery, no surgical intervention during this hospitalization, outpt f/u
HLD: cont atorvastatin
PAD: cont plavix/statin
Hypocalcemia: cont ergocalciferol 50,000IU Qweek x 6 doses (first dose was 09/26/24)
Hypomagnesemia, resolved
Obesity due to excess calories
FULL/Heparin
Time spent coordinating care, review of plan of care with resident, personally reviewed records in EMR, med rec, consults, notes, labs, radiology, d/w nursing � 59 mins
Original Note:
Today's Communication/Plan
-
;/
Assessment / Plan
Assessment / Plan
Assessment/plan
Acute on chronic HFrEF
-Echo 09/24/2024 EF 35-40%, Stage II diastolic dysfunction, inferior hypokinesis, mild MR, mild AR, small pericardial effusion
-On IV Lasix 80 mg q12hr, metolazone
-Weight down 3 kg from yesterday, significantly down since admission
-Holding SGLT2 inhibitors, Entresto
-On Coreg, hydralazine
LOURDES on CKD 4(baseline cre 2.65)
-Creatinine trending up, 3.3 today
-Hold a.m. dose of IV Lasix due to rising creatinine, now at dry weight
-Monitor BMP with diuresis
-Nephro following
Suspected obstructive sleep apnea
-Pulmonology recommended outpatient evaluation
-Has declined BiPAP while in-house for the past 2 days
Infrarenal AAA, measuring 8cm
- vascular surgery consulted - pt to be medically optimized and f/u outpatient
PAD
-Continue Plavix/statin
Hyperlipidemia
-Continue statin
Tobacco use disorder
-Nicotine patch
-Counseled on smoking cessation
DVT prophylaxis; heparin
CODE STATUS; full code
Anticipated Discharge: 24 - 48 hours
Subjective/Interval History
-
Patient seen and examined at bedside. Patient denies acute complaints of chest pain, shortness of breath.
Objective Data
-
Labs:
Laboratory Results
09/30/24
06:36
WBC 5.9
Hgb 11.7 L
Hct 37.0 L
Plt Count 136
Sodium 135
Potassium 4.5
Chloride 95 L
Carbon Dioxide 29
BUN 71 H
Creatinine 3.3 H
Glucose 110 H
Calcium 7.8 L
Total Bilirubin 0.3
AST 20
ALT 16
Alkaline Phosphatase 110
Vital Signs:
Vital Signs
Temp Pulse Resp BP Pulse Ox
98.2 F 82 20 127/68 92
09/30/24 03:11 09/30/24 03:11 09/30/24 03:11 09/30/24 03:11 09/30/24 03:11
I&O
09/29/24 09/30/24 10/01/24
06:59 06:59 06:59
Intake Total 240 / 240 1260 / 1260
Output Total 3950 / 3950 2160 / 2160
Balance -3710 / -3710 -900 / -900
Review of Systems
-
All other systems: Reviewed and negative (Except as documented)
Physical Exam
-
General: No Apparent Distress
HEENT: Normocephalic and Atraumatic
Respiratory: Clear to Auscultation
Cardiac: Regular Rhythm and S1/S2
GI: Soft, Nontender and Nondistended
Musculoskeletal: Other (Trace bilateral edema)
Neuro: Awake, Alert, Oriented and AO x 3
Psych: Calm
[2024-09-30] MEDS: COREG 6.25 MG PO ×2 (09:11→19:41)
[2024-09-30] MEDS: VITAMIN B1 100 MG PO ×2 (09:11→19:42)
[2024-09-30] MEDS: APRESOLINE 25 MG PO ×3 (09:11→23:05)
[2024-09-30] MEDS: LIPITOR 40 MG PO (09:11)
[2024-09-30] MEDS: PLAVIX 75 MG PO (09:11)
[2024-09-30] MEDS: NITRO-DUR 0.2 MG TRANSDERM (09:14)
[2024-09-30] MEDS: HEPARIN 5000 UNITS SC ×2 (09:15→19:41)
[2024-09-30] MEDS: ZAROXOLYN 5 MG PO (09:19)
[2024-09-30] MEDS: FOLVITE 1 MG PO (09:19)
[2024-09-30] MEDS: NICODERM TRANSDERMAL 14 MG TRANSDERM (09:20)
[2024-09-30] MEDS: LASIX IV (10:03)
--- NOTE | 2024-09-30 11:08 | W.PN.CARDCBS ---
Today's Communication / Plan
-
Stable cardiac status
See recommendations for discharge medications below
Impression / Plan
-
PCP: Dr. Jammie Tinoco
Cardiology: Dr. Ramos
Impression:
Admitted to after elective cath for multiple medical problems 09/24/24
CKD 4
Cre 2.65 06/26/24, Cre 2.76 and eGFR 26 09/14/24
Hyperkalemia
potassium 5.6 09/14/24
Nonobstructive CAD by cath 09/24/24
Acute HFrEF
PCWP 44 on RHC 09/24/24
NICM EF EF 25 to 30% by echo 06/13/24
Mild MR
Moderate aortic regurgitation
Sinus bradycardia
Suspected JAD
PAD
Occluded right external iliac, multifocal mild to moderate narrowing of bilateral common iliac arteries, occluded left SFA and significant atherosclerotic disease in the left popliteal artery and LLE arteries by CTA 05/2624
Mild to moderate stenosis of bilateral renal arteries
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
Echo 06/13/2024: EF 27.2% by Koehler's method, mild to moderate increased LV cavity with severe eccentric LVH, grade 2 diastolic dysfunction, normal RV size with mildly decreased RV systolic function, small pericardial effusion, mild MR, moderate
aortic regurgitation
Echo 10/04/2024: 35-40%, inferior hypokinesis, mild MR, mild AR, small pericardial effusion
RHC: PCWP 44, PA 76/41, RA 23
LHC: 20-30% LMain, LAD, 50-60% OM1
Plan:
Stable cardiac status.
He is probably at dry weight and creatinine is up to 3.3. Defer appropriate diuretic regimen to nephrology this time.
Okay for for discharge from cardiac standpoint. 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
Recommended cardiac medications at discharge:
Atorvastatin 40 mg a day
Clopidogrel 75 mg a day
Nicotine patch
Carvedilol 6.25 mg twice daily
Nitroglycerin patch 0.2 mg a hour awake
Hydralazine 25 mg 3 times daily
Diuretics per nephrology
Farxiga 10 mg daily or Jardiance 10 mg daily if nephrology agrees
BMP in 1 week
We will sign off please call if questions
Progress Note - Painter Spray
Subjective
Date of Service: September 30, 2024:
Medications: Atorvastatin 40 mg a day, clopidogrel 75 mg a day, subcu heparin, nicotine patch, thiamine, folate, carvedilol 6.25 twice daily, nitro due to patch 0.2, hydralazine 25 3 times daily, metolazone 5 mg a day, furosemide 80 mg daily
134/84, pulse 77, respiratory 20, weight is 96.7 kg, down 2.7 kg
Hemoglobin is 11.7, BUN and creatinine are 71 and 3.3, creatinine had been 2.9 on the
Objective
Labs:
09/30/24 06:36
09/30/24 06:36
Labs
Hgb 11.7 g/dL (13.0-18.0) L 09/30/24 06:36
Hct 37.0 % (39.0-52.0) L 09/30/24 06:36
Plt Count 136 10^3/uL (130-400) 09/30/24 06:36
Sodium 135 mmol/L (135-145) 09/30/24 06:36
Potassium 4.5 mmol/L (3.5-5.1) 09/30/24 06:36
BUN 71 mg/dl (9-20) H 09/30/24 06:36
Creatinine 3.3 mg/dL (0.7-1.3) H 09/30/24 06:36
Glucose 110 mg/dl (70-99) H 09/30/24 06:36
Vital Signs and I&O:
Vital Signs
Temp Pulse Resp BP Pulse Ox
36.6 C 77 20 134/84 94
09/30/24 07:43 09/30/24 09:11 09/30/24 07:43 09/30/24 09:11 09/30/24 07:43
Vital Signs
Temp Pulse Resp BP Pulse Ox
36.6 C 77 20 134/84 94
09/30/24 07:43 09/30/24 09:11 09/30/24 07:43 09/30/24 09:11 09/30/24 07:43
Intake & Output
09/28/24 09/29/24 09/30/24 10/01/24
07:59 07:59 07:59 07:59
Intake Total 1180 / 1180 240 / 240 1260 / 1260
Output Total 3400 / 3400 3950 / 3950 2160 / 2160
Balance -2220 / -2220 -3710 / -3710 -900 / -900
Physical Exam
Physical Exam
No distress, lungs are clear, regular rate and rhythm, very soft systolic murmur abdomen benign, extremities without clubbing sinus edema, distal pulses intact, extremities without edema
[2024-09-30 11:13] VITALS: BP 117/78
--- NOTE | 2024-09-30 15:16 | W.PN.NEPH.PH ---
Today's Communication / Plan
-
continue IV diuretics
Assessment/Plan
-
Impression:
LOURDES
CKD 4 (baseline 2.65 07/11)
Hyperkalemia
Decompensated congestive heart failure
Cardiomyopathy with EF of 20 to 30%
Hypocalcemia
Nongap metabolic acidosis
PVD/AAA 8cm
Plan:
LOURDES in setting of decompensated congestive heart failure
Creatinine up to 3 .3 but still within baseline,
grossly nonoliguric with almost 5 L of urine output greater than 3.8 L
Weights down
Remains grossly nonoliguric on diuretic support with weights dropping
improved hyperkalemia
continueLasix to 80 mg IV twice daily and maintain daily metolazone
Venous blood gas reviewed indicating persistent hypercapnia
bland urinalysis, urine PCR 2.8gm/gm of ns-vgdyhgx-jmfrs paraprotein w/u
avoid nephrotoxins, continue to hold Entresto and SGLT2I
possible JAD on BIPAP at night: Re: hypercapnia
Accurate I's and O's and daily weights daily to continue
timing of Thoracoabdominal AAA repair per vascular after d/c
Patient will need outpatient nephrology follow-up with manager of digital up in the [place] area as he will likely require eventual dialysis and will be outside of our operating system
is off oxygen in a clinically improved/ edema has improved as well
-
-
Date of Service: September 30, 2024
CC / HPI / ROS
-
Chief Complaint:
LOURDES
History of Present Illness:
cr at 3 non oliguric with out conde
Bp stable
Review of Systems:
Feels better, less short of breath. No pain
hypoxic during sleep and used BIPAP
Weights down
Grossly non oliguric greater than 3.8 L
Labs
-
Labs:
WBC 5.9 10^3/uL (4.8-10.8) 09/30/24 06:36
RBC 4.08 10^6/uL (4.70-6.10) L 09/30/24 06:36
Hgb 11.7 g/dL (13.0-18.0) L 09/30/24 06:36
Hct 37.0 % (39.0-52.0) L 09/30/24 06:36
Plt Count 136 10^3/uL (130-400) 09/30/24 06:36
Sodium 135 mmol/L (135-145) 09/30/24 06:36
Potassium 4.5 mmol/L (3.5-5.1) 09/30/24 06:36
Chloride 95 mmol/L (98-107) L 09/30/24 06:36
Carbon Dioxide 29 mmol/L (22-30) 09/30/24 06:36
BUN 71 mg/dl (9-20) H 09/30/24 06:36
Creatinine 3.3 mg/dL (0.7-1.3) H 09/30/24 06:36
eGFR 21.35 09/30/24 06:36
Glucose 110 mg/dl (70-99) H 09/30/24 06:36
Calcium 7.8 mg/dl (8.4-10.2) L 09/30/24 06:36
Fou-D-Gmycyakyjun Pept 5130 pg/ml 09/24/24 09:28
Albumin 3.7 g/dl (3.5-5.0) 09/30/24 06:36
Physical Exam
-
Vital Signs:
Vital Signs
Temp Pulse Resp BP Pulse Ox
98 F 80 20 117/78 94
09/30/24 11:13 09/30/24 11:13 09/30/24 11:13 09/30/24 11:13 09/30/24 11:13
Cardiovascular:: Regular rate and rhythm
Respiratory:: Bilateral: Coarse
Lung Excursion:: Normal
Abdomen:: Nontender and Soft
Extremity Edema:: +1: Bilateral:
Conde Catheter: No
--- NOTE | 2024-09-30 15:19 | W.PN.NEPH.PH ---
Today's Communication / Plan
-
Torsemide 40 mg and okay for discharge
Assessment/Plan
-
Impression:
LOURDES
CKD 4 (baseline 2.65 07/11)
Hyperkalemia
Decompensated congestive heart failure
Cardiomyopathy with EF of 20 to 30%
Hypocalcemia
Nongap metabolic acidosis
PVD/AAA 8cm
Plan:
LOURDES in setting of decompensated congestive heart failure
Creatinine up to 3 .3 but still within baseline,
grossly nonoliguric with almost 5 L of urine output greater than 3.8 L
Weights down
Remains grossly nonoliguric on diuretic support with weights dropping
improved hyperkalemia
continueLasix to 80 mg IV twice daily and maintain daily metolazone
Venous blood gas reviewed indicating persistent hypercapnia
bland urinalysis, urine PCR 2.8gm/gm of lu-ppcbqco-xvzqt paraprotein w/u
avoid nephrotoxins, continue to hold Entresto and SGLT2I
possible JAD on BIPAP at night: Re: hypercapnia
Accurate I's and O's and daily weights daily to continue
timing of Thoracoabdominal AAA repair per vascular after d/c
Patient will need outpatient nephrology follow-up with dividend deposit entry clerk up in the [place] area as he will likely require eventual dialysis and will be outside of our operating system
is off oxygen in a clinically improved/ edema has improved as well
Okay for discharge from renal standpoint on 40 mg of torsemide
-
-
Date of Service: September 30, 2024
CC / HPI / ROS
-
Chief Complaint:
LOURDES
History of Present Illness:
Creatinine stable breathing much improved
Review of Systems:
Feels better, less short of breath. No pain
Weights down
Labs
-
Labs:
WBC 5.9 10^3/uL (4.8-10.8) 09/30/24 06:36
RBC 4.08 10^6/uL (4.70-6.10) L 09/30/24 06:36
Hgb 11.7 g/dL (13.0-18.0) L 09/30/24 06:36
Hct 37.0 % (39.0-52.0) L 09/30/24 06:36
Plt Count 136 10^3/uL (130-400) 09/30/24 06:36
Sodium 135 mmol/L (135-145) 09/30/24 06:36
Potassium 4.5 mmol/L (3.5-5.1) 09/30/24 06:36
Chloride 95 mmol/L (98-107) L 09/30/24 06:36
Carbon Dioxide 29 mmol/L (22-30) 09/30/24 06:36
BUN 71 mg/dl (9-20) H 09/30/24 06:36
Creatinine 3.3 mg/dL (0.7-1.3) H 09/30/24 06:36
eGFR 21.35 09/30/24 06:36
Glucose 110 mg/dl (70-99) H 09/30/24 06:36
Calcium 7.8 mg/dl (8.4-10.2) L 09/30/24 06:36
Vlo-N-Ofcictrqgmg Pept 5130 pg/ml 09/24/24 09:28
Albumin 3.7 g/dl (3.5-5.0) 09/30/24 06:36
Physical Exam
-
Vital Signs:
Vital Signs
Temp Pulse Resp BP Pulse Ox
98 F 80 20 117/78 94
09/30/24 11:13 09/30/24 11:13 09/30/24 11:13 09/30/24 11:13 09/30/24 11:13
Cardiovascular:: Regular rate and rhythm
Respiratory:: Bilateral: CTA
Lung Excursion:: Normal
Abdomen:: Nontender and Soft
Extremity Edema:: +1: Bilateral:
[place] Catheter: No
[2024-09-30 15:35] VITALS: BP 127/76
[2024-09-30] MEDS: LASIX 80 MG IV (19:45)
[2024-09-30 23:25] VITALS: BP 120/66
[2024-10-01 00:20] LABS: Albumin 2.98 g/dL (3.75-5.01); Alpha 1 Globulin 0.31 g/dL (0.19-0.46); Alpha 2 Globulin 0.79 g/dL (0.48-1.05); SPEP IFE Reflex Not Done; Total Protein-Electrophoresis 5.7 g/dL (6.3-8.2)
[2024-10-01 06:00] VITALS: BMI 34.3
--- NOTE | 2024-10-01 07:45 | W.PN.HOSP.TC ---
Addendum entered and electronically signed by Edilberto Chau MD 10/02/24 00:05:
Attending Addendum-
I saw and evaluated the patient. I reviewed the resident�s note and agree with findings and plan as documented in the resident�s note. Sub: feels greatly improved. Wants to go home. Denies SOB CP palps. Full 12 point ROS reviewed and negative except
as documented Exam: Vitals reviewed in chart GEN-NAD heart RRR lungs fine crackles at bases abd soft obese LE trace edema
Plan:
#Acute on chronic HFrEF:
-resolved
-09/24 Echo-Moderately reduced left ventricular systolic function.
Left ventricular ejection fraction is 35-40% by volumetric assessment.
Global hypokinesis with inferior and inferolateral akinesis.
-change to Lasix 80mg IV Q8->T22-ywcwrtoji onf DC cont metolazone
-daily wts (down 10Kg since admission ), I/Os
-cont Coreg at lower dose with prior bradycardia
-cont hydralazine and nitro patch
-hold Entresto/Jardiance with CKD4
#LOURDES on CKD 4
- likely new baseline @ 3
- transition to torsemide on DC
- f/u nephro as OP
- d/w nephro ok for DC home
Non-AG met acidosis and respiratory acidosis:
- resolved
- home 02 assessment
- BIPAP HS (suspect underlying OHS/JAD)
Other problems:
Severe hyperkalemia: s/p D50W and insulin, Lokelma, Kayexalate, resolved
Tobacco abuse disorder: Patient reports he smoked a pack a day for over 40 years. Nicotine patch. Counseled on smoking cessation.
Alcohol abuse disorder: states he quit ~ 1 year ago, cont thiamine/folate
Infrarenal abdominal aortic aneurysm of 8 cm: seen by vascular surgery, no surgical intervention during this hospitalization, outpt f/u
HLD: cont atorvastatin
PAD: cont plavix/statin
Hypocalcemia: cont ergocalciferol 50,000IU Qweek x 6 doses (first dose was 09/26/24)
Hypomagnesemia, resolved
Obesity due to excess calories
FULL/Heparin
Time spent coordinating care, DC planning, review of DC plan of care with resident, transition of care, review of records, med rec/scripts sent electronically, consults, notes, d/w consultants/nephro, nursing, family, and CM� 36 mins
Original Note:
Today's Communication/Plan
-
;/
Assessment / Plan
Assessment / Plan
Assessment/plan
Acute on chronic HFrEF
-Echo 09/24/2024 EF 35-40%, Stage II diastolic dysfunction, inferior hypokinesis, mild MR, mild AR, small pericardial effusion
-On IV Lasix 80 mg q12hr, metolazone
-After discussion with Nephro via TT today, recommendation to start Torsemide 40 daily.
-D/c lasix. Start Torsemide
-Weight down 3 kg from yesterday, significantly down since admission
-Holding SGLT2 inhibitors, Entresto until you see Tape Deck Installer outpatient
-On Coreg, hydralazine
LOURDES on CKD 4(baseline cre 2.65)
-Creatinine 3.1, per nephrology within baseline
-Monitor BMP with diuresis
-Nephro following
Suspected obstructive sleep apnea
-Pulmonology recommended outpatient evaluation
-Has declined BiPAP while in-house for the past 2 days
Infrarenal AAA, measuring 8cm
- vascular surgery consulted - pt to be medically optimized and f/u outpatient
PAD
-Continue Plavix/statin
Hyperlipidemia
-Continue statin
Tobacco use disorder
-Nicotine patch
-Counseled on smoking cessation
Obesity due to excess calories
DVT prophylaxis; heparin
CODE STATUS; full code
Anticipated Discharge: 24 - 48 hours
Subjective/Interval History
-
Patient denies any complaint of chest pain, shortness of breath.
Objective Data
-
Labs:
Laboratory Results
10/01/24
07:10
WBC Pending
Hgb Pending
Hct Pending
Plt Count Pending
Sodium Pending
Potassium Pending
Chloride Pending
Carbon Dioxide Pending
BUN Pending
Creatinine Pending
Glucose Pending
Calcium Pending
Vital Signs:
Vital Signs
Temp Pulse Resp BP Pulse Ox
98.2 F 88 16 120/66 95
09/30/24 23:25 09/30/24 23:25 09/30/24 23:25 09/30/24 23:25 09/30/24 23:25
I&O
09/30/24 10/01/24 10/02/24
06:59 06:59 06:59
Intake Total 1260 / 1260 600 / 600
Output Total 2160 / 2160 600 / 600
Balance -900 / -900 0 / 0
Review of Systems
-
All other systems: Reviewed and negative (Except as documented)
Physical Exam
-
General: Well Developed and No Apparent Distress
Respiratory: Clear to Auscultation
Cardiac: Regular Rhythm and S1/S2
GI: Soft, Nontender and Nondistended
Musculoskeletal: No Edema
Neuro: Awake, Alert, Oriented and AO x 3
Psych: Calm
[2024-10-01 07:55] VITALS: BP 149/88
[2024-10-01 08:14] LABS: Blood Urea Nitrogen 78 mg/dl (9-20); Calcium 8.1 mg/dl (8.4-10.2); Carbon Dioxide 30 mmol/L (22-30); Chloride 92 mmol/L (98-107); Estimated Creatinine Clearance 30 ml/min; Glucose 113 mg/dl (70-99); Potassium 4.3 mmol/L (3.5-5.1); Sodium 134 mmol/L (135-145); eGFR 23.01
[2024-10-01 08:25] LABS: Red Blood Cell Count 4.33 10^6/uL (4.70-6.10)
[2024-10-01 08:26] LABS: Hemoglobin 12.4 g/dL (13.0-18.0); Mean Corp Hgb Conc. 31.8 g/dL (33.0-37.0); Mean Corpuscular Hgb 28.6 pg (27.0-31.0); Mean Corpuscular Volume 90.1 fL (80.0-94.0); Mean Platelet Volume 11.1 fL (7.4-10.4); Platelet Count 132 10^3/uL (130-400); Red Cell Dist. Width 14.4 % (11.5-14.5)
[2024-10-01] MEDS: FOLVITE 1 MG PO (09:09)
[2024-10-01] MEDS: APRESOLINE 25 MG PO ×2 (09:10→16:02)
[2024-10-01] MEDS: COREG 6.25 MG PO (09:10)
[2024-10-01] MEDS: LIPITOR 40 MG PO (09:10)
[2024-10-01] MEDS: VITAMIN B1 100 MG PO (09:10)
[2024-10-01] MEDS: PLAVIX 75 MG PO (09:10)
[2024-10-01] MEDS: NITRO-DUR 0.2 MG TRANSDERM (09:11)
[2024-10-01] MEDS: ZAROXOLYN 5 MG PO (09:11)
[2024-10-01] MEDS: NICODERM TRANSDERMAL 14 MG TRANSDERM (09:12)
[2024-10-01] MEDS: HEPARIN 5000 UNITS SC (09:12)
[2024-10-01] MEDS: LASIX 80 MG IV (09:12)
[2024-10-01] MEDS: FLUSH (NSS) 1 FLUSH IV (09:13)
[2024-10-01 10:26] VITALS: BMI 34.3
--- NOTE | 2024-10-01 14:35 | CM ---
Chart reviewed for d/c planning. Plan of care ongoing
Pt is off of O2 at this time. No home O2 needs per physician resident.
Pt is being recommended to follow up OP for sleep study/evaluation per pulmonary. Pt will not d/c w/ BiPaP, has been refusing while in hospital last few attempts.
Per chart, will transition to PO lasix at d/c
Plan: Home; no needs
[2024-10-01 15:33] VITALS: BP 129/93
--- NOTE | 2024-10-01 15:56 | PTCARENOTE ---
Pt AA x3, GUERRERO well, ambulatory in room/to BR; merry well. VSS. On room air- pulse ox 93%, no SOB noted. Abd obese, soft, merry PO well. Voiding clear yellow urine in urinal, instructing pt to monitor output- pt compliant. Resting in bed at present,
no c/o. Will continue to monitor.
--- NOTE | 2024-10-01 16:23 | W.PN.NEPH.PH ---
Today's Communication / Plan
-
Continue diuretics
Assessment/Plan
-
Impression:
LOURDES
CKD 4 (baseline 2.65 07/11)
Hyperkalemia
Decompensated congestive heart failure
Cardiomyopathy with EF of 20 to 30%
Hypocalcemia
Nongap metabolic acidosis
PVD/AAA 8cm
Plan:
LOURDES in setting of decompensated congestive heart failure
Creatinine 3.1
grossly nonoliguric with almost 5 L of urine output greater than 3.8 L
Weights down
Remains grossly nonoliguric on diuretic support with weights dropping
improved hyperkalemia
continueLasix to 80 mg IV twice daily and maintain daily metolazone
bland urinalysis, urine PCR 2.8gm/gm of ql-akrgzuu-akiwk paraprotein w/u
avoid nephrotoxins, continue to hold Entresto and SGLT2I
possible JAD on BIPAP at night: Re: hypercapnia
Accurate I's and O's and daily weights daily to continue
timing of Thoracoabdominal AAA repair per vascular after d/c
Patient will need outpatient nephrology follow-up with machine taper up in the [place] area as he will likely require eventual dialysis and will be outside of our operating system
is off oxygen in a clinically improved/ edema has improved as well
-
-
Date of Service: October 01, 2024
CC / HPI / ROS
-
Chief Complaint:
LOURDES
History of Present Illness:
cr at 3 non oliguric with out conde
Bp stable
Review of Systems:
Feels better, less short of breath. No pain
hypoxic during sleep and used BIPAP
Weights down
Grossly non oliguric greater than 3.8 L
Labs
-
Labs:
WBC 6.0 10^3/uL (4.8-10.8) 10/01/24 07:10
RBC 4.33 10^6/uL (4.70-6.10) L 10/01/24 07:10
Hgb 12.4 g/dL (13.0-18.0) L 10/01/24 07:10
Hct 39.0 % (39.0-52.0) 10/01/24 07:10
Plt Count 132 10^3/uL (130-400) 10/01/24 07:10
Sodium 134 mmol/L (135-145) L 10/01/24 07:10
Potassium 4.3 mmol/L (3.5-5.1) 10/01/24 07:10
Chloride 92 mmol/L (98-107) L 10/01/24 07:10
Carbon Dioxide 30 mmol/L (22-30) 10/01/24 07:10
BUN 78 mg/dl (9-20) H 10/01/24 07:10
Creatinine 3.1 mg/dL (0.7-1.3) H 10/01/24 07:10
eGFR 23.01 10/01/24 07:10
Glucose 113 mg/dl (70-99) H 10/01/24 07:10
Calcium 8.1 mg/dl (8.4-10.2) L 10/01/24 07:10
Bwf-O-Ipbnlicyicl Pept 5130 pg/ml 09/24/24 09:28
Albumin 3.7 g/dl (3.5-5.0) 09/30/24 06:36
Physical Exam
-
Vital Signs:
Vital Signs
Temp Pulse Resp BP Pulse Ox
98.3 F 83 18 129/83 93
10/01/24 15:33 10/01/24 16:02 10/01/24 15:33 10/01/24 16:02 10/01/24 15:56
Cardiovascular:: Regular rate and rhythm
Respiratory:: Bilateral: Coarse
Lung Excursion:: Normal
Abdomen:: Nontender and Soft
Extremity Edema:: +1: Bilateral:
Conde Catheter: No
[2024-10-01] MEDS: DEMADEX 40 MG PO (16:52)
--- NOTE | 2024-10-01 18:31 | W.PN.NEPH.PH ---
Today's Communication / Plan
-
ok to dc on torsemide
Assessment/Plan
-
Impression:
LOURDES
CKD 4 (baseline 2.65 07/11)
Hyperkalemia
Decompensated congestive heart failure
Cardiomyopathy with EF of 20 to 30%
Hypocalcemia
Nongap metabolic acidosis
PVD/AAA 8cm
Plan:
LOURDES in setting of decompensated congestive heart failure
Creatinine up to 3 .3 but still within baseline,
grossly nonoliguric with almost 5 L of urine output greater than 3.8 L
Weights down
Remains grossly nonoliguric on diuretic support with weights dropping
improved hyperkalemia
bland urinalysis, urine PCR 2.8gm/gm of ru-mbpgwbx-ljrna paraprotein w/u
avoid nephrotoxins, continue to hold Entresto and SGLT2I
possible JAD on BIPAP at night: Re: hypercapnia
Accurate I's and O's and daily weights daily to continue
timing of Thoracoabdominal AAA repair per vascular after d/c
Patient will need outpatient nephrology follow-up with applications support specialist up in the [place] area as he will likely require eventual dialysis and will be outside of our operating system
is off oxygen in a clinically improved/ edema has improved as well
Okay for discharge from renal standpoint on 40 mg of torsemide
-
-
Date of Service: October 01, 2024
CC / HPI / ROS
-
Chief Complaint:
LOURDES
History of Present Illness:
Creatinine stable breathing much improved
Review of Systems:
Feels better, less short of breath. No pain
Weights down
Labs
-
Labs:
WBC 6.0 10^3/uL (4.8-10.8) 10/01/24 07:10
RBC 4.33 10^6/uL (4.70-6.10) L 10/01/24 07:10
Hgb 12.4 g/dL (13.0-18.0) L 10/01/24 07:10
Hct 39.0 % (39.0-52.0) 10/01/24 07:10
Plt Count 132 10^3/uL (130-400) 10/01/24 07:10
Sodium 134 mmol/L (135-145) L 10/01/24 07:10
Potassium 4.3 mmol/L (3.5-5.1) 10/01/24 07:10
Chloride 92 mmol/L (98-107) L 10/01/24 07:10
Carbon Dioxide 30 mmol/L (22-30) 10/01/24 07:10
BUN 78 mg/dl (9-20) H 10/01/24 07:10
Creatinine 3.1 mg/dL (0.7-1.3) H 10/01/24 07:10
eGFR 23.01 10/01/24 07:10
Glucose 113 mg/dl (70-99) H 10/01/24 07:10
Calcium 8.1 mg/dl (8.4-10.2) L 10/01/24 07:10
Mfd-I-Whkmovswzsd Pept 5130 pg/ml 09/24/24 09:28
Albumin 3.7 g/dl (3.5-5.0) 09/30/24 06:36
Physical Exam
-
Vital Signs:
Vital Signs
Temp Pulse Resp BP Pulse Ox
98.3 F 83 18 129/83 93
10/01/24 15:33 10/01/24 16:52 10/01/24 15:33 10/01/24 16:52 10/01/24 15:56
Cardiovascular:: Regular rate and rhythm
Respiratory:: Bilateral: Coarse
Lung Excursion:: Normal
Abdomen:: Nontender and Soft
Extremity Edema:: +1: Bilateral:
[place] Catheter: No
--- NOTE | 2024-10-01 18:38 | W.DCSUMMARY ---
Addendum entered and electronically signed by Edilberto Chau MD 10/02/24 00:08:
Read, reviewed, and agree. See same day progress note for additional details. Seen by nephro and ok to DC on torsemide (new) with close follow up
Jerrod Chau MD
Original Note:
Documented by User: Maricel Arroyo MD, Resident 10/01/24 19:05
Discharge Summary
Discharge Data
Date of Admission: 09/24/24
Date of Discharge: 10/01/24
-
Pending Results: No
Hospital Course
This is a 54-year-old male with past medical history of hyperlipidemia, CHF, probable obstructive sleep apnea who went for cardiac catheterization and was found to be in acute CHF exacerbation. In addition patient reports he was having symptoms of
dyspnea earlier in the day, 30 pound weight gain and bilateral lower extremity edema. He underwent both left and right heart cath and was admitted postprocedure for acute heart failure the same day
Principal Discharge diagnosis :
-Acute heart failure reduced ejection fraction
Patient with a history of underlying cardiomyopathy with a EF of 20% maintained on beta-mark, Entresto and 40 mg daily Lasix. Due to shortness of breath, patient required oxygen therapy. Patient was started on IV diuresis 80 mg IV daily and
maintained on metolazone 5 mg. He was taking Lasix 40 mg daily prior to his admission. Due to his worsening renal function following his cardiac catheterization, recommendation was to hold his Jardiance 10 mg he was taking prior to admission and
Entresto. Repeat echocardiogram was ordered which showed an EF of 35-40%, global hypokinesis with inferior and inferolateral akinesis, left atrial dilation. He was continued on diuresis with IV Lasix. His weight improved, down 10 kg after
diuresis, I's and O's and negative with diuresis. Patient improved clinically with edema improved, and was appropriately weaned off oxygen. He will be discharged from a renal standpoint on 40 mg of torsemide and continued on metolazone 5 mg daily.
Due CKD 4 his Jardiance 10 mg will be held until he sees a furniture technician and Entresto will be discontinued at this time.
Chronic Discharge diagnosis :
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 Vascular was consulted for evaluation. Endovascular solutions were discussed
with patient to address this problem and will be evaluated in the outpatient setting.
-Suspected obstructive sleep apnea
During his hospital stay, patient required supplemental oxygen likely related to his CHF and on top of that, underlying COPD. He required BiPAP 14/6-8 cm with supplemental oxygen at night. VBG's were ordered which showed a Non-AG met acidosis and
respiratory acidosis. Pulmonology was consulted and it was recommended he get an outpatient evaluation for a home sleep study, PFTs. In addition patient is a current smoker who smoked a pack a day for over 40 years. Recommendation is outpatient
workup with a low-dose CT scan for lung cancer screening.
Important imaging findings :
Echocardiogram 09/24/2024; Normal left ventricular chamber size. Moderately reduced left ventricular
systolic function. Left ventricular ejection fraction is 35-40% by volumetric
assessment. Global hypokinesis with inferior and inferolateral akinesis.
Mild concentric left ventricular hypertrophy. Stage II diastolic dysfunction
suggestive of abnormal relaxation and increased filling pressures.
Mitral valve opens normally. Mild mitral regurgitation.
Indexed LA volume is severely abnormal (> 48 mL/m2).
Trileaflet thickened aortic valve. Aortic valve opens normally. Mild aortic
regurgitation.
Small pericardial effusion. Right and left pleural effusion present.
Discharge Plan
-
Patient Disposition: Home (Routine Discharge)
Discharge Diagnosis/Procedures: Acute on chronic heart failure reduced ejection fraction
Acute kidney injury
Non-anion gap metabolic acidosis and respiratory acidosis
Infrarenal abdominal aortic aneurysm
Condition: Fair
Diet: Low Sodium and No added salt
Activity: No restrictions and As tolerated
Driving Restrictions: As prior to admission
Bathing Restrictions: None
Blood Work: BMP in 1 week. Contact your PCP for script.
Others Tests: Outpatient pulmonary/sleep disorders [id number] PFTs, ongoing smoking cessation counseling, possible inhalers, 6-minute walk test, sleep study, yearly low-dose lung cancer screening CT
Instructions: Heart failure with reduced ejection fraction, Heart failure in adults - Discharge instructions
Referrals:
Ab De Los Santos III, MD [Active] - 10/09/24 10:00 am (Vacsular surgery discussion regaurding surgical plan for aneurysm *)
LUI PASCAL DO [Family Provider] - in one week
Alexander Benitez MD [Active] - in three to four weeks
(Or nurse practitioner
Ongoing smoking cessation counseling, yearly low-dose lung cancer screening CT, PFTs and sleep study)
Kalen Ramos MD [Active] - in two to three weeks
Additional Discharge Medication Instructions: Atorvastatin 40 mg a day
Clopidogrel 75 mg a day
Nicotine patch
Carvedilol 6.25 mg twice daily
Nitroglycerin patch 0.2 mg a hour awake
Hydralazine 25 mg 3 times daily
Torsemide 40mg daily
Metolazone 5mg daily
Stop Empagliflozin until you see furniture technician
Prescriptions:
New
carvedilol 6.25 mg Tablet
6.25 mg PO BID Qty: 30 0RF
torsemide 20 mg Tablet
40 mg PO DAILY Qty: 30 0RF
nitroglycerin 0.2 mg/hr Patch 24 Hour
0.2 mg transdermal DAILY Qty: 30 0RF
metolazone 5 mg Tablet
5 mg PO DAILY Qty: 30 0RF
hydralazine 25 mg Tablet
25 mg PO TID Qty: 30 0RF
ergocalciferol (vitamin D2) 1,250 mcg (50,000 unit) Capsule
1,250 mcg PO Q7D Qty: 30 0RF
nicotine 14 mg/24 hr Patch 24 Hour
14 mg transdermal DAILY Qty: 30 0RF
Continued
clopidogrel 75 mg Tablet
75 mg PO DAILY
atorvastatin 40 mg Tablet
40 mg PO DAILY Qty: 0 0RF
Discontinued
furosemide 40 mg Tablet
40 mg PO DAILY
carvedilol 12.5 mg Tablet
12.5 mg PO BID
empagliflozin 10 mg Tablet
10 mg PO DAILY
sacubitril-valsartan 24-26 mg Tablet
1 tab PO BID
Discharge Orders:
Discharge Patient (As Directed); Ordered 10/01/24
Ordered By: Maricel Arroyo
Care Plan Goals
Care Plan Goals:
Problem: Readiness for enhanced knowledge related to diagnosis and treatment plan
Goal: Understand your diagnosis and treatment plan needs, including medications if applicable.
Instructions: Know your diagnosis, underlying causes and treatment plan options, including medications if applicable. Consult with your health care team to learn about your diagnosis and treatment plan, including medications if applicable.
Discharge Date and Time
Discharge Date/Time: 10/01/24 18:36
Print Language: ANDORRAN

Documented by User: Edilberto Chau MD 10/02/24 00:01
Discharge Summary
Discharge Data
Date of Admission: 09/24/24
Date of Discharge: 10/02/24
Discharge Plan
-
Patient Disposition: Home (Routine Discharge)
Discharge Diagnosis/Procedures: Acute on chronic heart failure reduced ejection fraction
Acute kidney injury
Non-anion gap metabolic acidosis and respiratory acidosis
Infrarenal abdominal aortic aneurysm
Condition: Fair
Diet: Low Sodium and No added salt
Activity: No restrictions and As tolerated
Driving Restrictions: As prior to admission
Bathing Restrictions: None
Blood Work: BMP in 1 week. Contact your PCP for script.
Others Tests: Outpatient pulmonary/sleep disorders [id number] PFTs, ongoing smoking cessation counseling, possible inhalers, 6-minute walk test, sleep study, yearly low-dose lung cancer screening CT
Instructions: Heart failure with reduced ejection fraction, Heart failure in adults - Discharge instructions
Referrals:
Ab De Los Santos III, MD [Active] - 10/09/24 10:00 am (Vacsular surgery discussion regaurding surgical plan for aneurysm *)
LUI PASCAL DO [Family Provider] - in one week
Alexander Benitez MD [Active] - in three to four weeks
(Or nurse practitioner
Ongoing smoking cessation counseling, yearly low-dose lung cancer screening CT, PFTs and sleep study)
Kalen Ramos MD [Active] - in two to three weeks
Additional Discharge Medication Instructions: Atorvastatin 40 mg a day
Clopidogrel 75 mg a day
Nicotine patch
Carvedilol 6.25 mg twice daily
Nitroglycerin patch 0.2 mg a hour awake
Hydralazine 25 mg 3 times daily
Torsemide 40mg daily
Metolazone 5mg daily
Stop Empagliflozin until you see furniture technician
Prescriptions:
New
carvedilol 6.25 mg Tablet
6.25 mg PO BID Qty: 30 0RF
torsemide 20 mg Tablet
40 mg PO DAILY Qty: 30 0RF
nitroglycerin 0.2 mg/hr Patch 24 Hour
0.2 mg transdermal DAILY Qty: 30 0RF
metolazone 5 mg Tablet
5 mg PO DAILY Qty: 30 0RF
hydralazine 25 mg Tablet
25 mg PO TID Qty: 30 0RF
ergocalciferol (vitamin D2) 1,250 mcg (50,000 unit) Capsule
1,250 mcg PO Q7D Qty: 30 0RF
nicotine 14 mg/24 hr Patch 24 Hour
14 mg transdermal DAILY Qty: 30 0RF
Continued
clopidogrel 75 mg Tablet
75 mg PO DAILY
atorvastatin 40 mg Tablet
40 mg PO DAILY Qty: 0 0RF
Discontinued
furosemide 40 mg Tablet
40 mg PO DAILY
carvedilol 12.5 mg Tablet
12.5 mg PO BID
empagliflozin 10 mg Tablet
10 mg PO DAILY
sacubitril-valsartan 24-26 mg Tablet
1 tab PO BID
Discharge Orders:
Discharge Patient (As Directed); Ordered 10/01/24
Ordered By: Maricel Arroyo
Care Plan Goals
Care Plan Goals:
Problem: Readiness for enhanced knowledge related to diagnosis and treatment plan
Goal: Understand your diagnosis and treatment plan needs, including medications if applicable.
Instructions: Know your diagnosis, underlying causes and treatment plan options, including medications if applicable. Consult with your health care team to learn about your diagnosis and treatment plan, including medications if applicable.
Discharge Date and Time
Discharge Date/Time: 10/01/24 18:36
Print Language: ANDORRAN
== END 2024-10-01 18:36 | disposition home or self-care (01) | DRG 287 ==
LOC: 4 EAST ACU 16:36
PROVIDERS: Internal Medicine; Internal Medicine Cardiovascular Disease; Nurse Practitioner; Student in an Organized Health Care Education/Training Program; ADMITTING PHYSICIAN Internal Medicine; ATTENDING PHYSICIAN Family Medicine; CONSULT PHYSICIAN Internal Medicine Critical Care Medicine; CONSULT PHYSICIAN Specialist; CONSULT PHYSICIAN Surgery Vascular Surgery; FAMILY PHYSICIAN Student in an Organized Health Care Education/Training Program; OTHER PHYSICIAN Internal Medicine Cardiovascular Disease
PROC: B2111ZZ Fluoroscopy of Multiple Coronary Arteries using Low Osmolar Contrast (ICD-10-PCS; 2024-09-24)
PROC: 4A023N8 Measurement of Cardiac Sampling and Pressure, Bilateral, Percutaneous Approach (ICD-10-PCS; 2024-09-24)
PROC: 5A09357 Assistance with Respiratory Ventilation, Less than 24 Consecutive Hours, Continuous Positive Airway Pressure (ICD-10-PCS; 2024-09-24)
DX: I50.23 Acute on chronic systolic (congestive) heart failure (principal); E66.2 Morbid (severe) obesity with alveolar hypoventilation; E87.4 Mixed disorder of acid-base balance; I31.39 Other pericardial effusion (noninflammatory); I42.8 Other cardiomyopathies; I74.5 Embolism and thrombosis of iliac artery; N17.9 Acute kidney failure, unspecified; N18.4 Chronic kidney disease, stage 4 (severe); D64.9 Anemia, unspecified; E11.51 Type 2 diabetes mellitus with diabetic peripheral angiopathy without gangrene; Z68.34 Body mass index [BMI] 34.0-34.9, adult; E78.00 Pure hypercholesterolemia, unspecified; E83.51 Hypocalcemia; E87.5 Hyperkalemia; F10.10 Alcohol abuse, uncomplicated; F17.210 Nicotine dependence, cigarettes, uncomplicated; I25.10 Atherosclerotic heart disease of native coronary artery without angina pectoris; I27.20 Pulmonary hypertension, unspecified; I35.1 Nonrheumatic aortic (valve) insufficiency; I70.1 Atherosclerosis of renal artery; I70.202 Unspecified atherosclerosis of native arteries of extremities, left leg; I71.43 Infrarenal abdominal aortic aneurysm, without rupture; I71.60 Thoracoabdominal aortic aneurysm, without rupture, unspecified; J44.9 Chronic obstructive pulmonary disease, unspecified; Z71.6 Tobacco abuse counseling; Z79.02 Long term (current) use of antithrombotics/antiplatelets; Z79.84 Long term (current) use of oral hypoglycemic drugs; Z79.899 Other long term (current) drug therapy
CPT/HCPCS: 36600; 71046; 76775; 80048; 80053; 80061; 81003; 81015; 81050; 82248; 82306; 82570; 82805; 83036; 83735; 83880; 83970; 84155; 84156; 84165; 84300; 85027; 85347; 93005; 93306; 93460; 94660; 99152; 99153; 99406; C1769; C1894; Q9967